=== PATIENT | male | born 1960 | race Two or more races ===

== ENCOUNTER 2023-06-10 09:03 | Inpatient (IN) | payer OTHER ==
[~2023-06-10] VITALS: Ht 180.3 cm; Wt 58.6 kg
[~2023-06-10 09:03] MED LIST: IBUP-1456 PO; PRED20TA2 PO; TRAM50TA2 PO
[2023-06-10 09:25] VITALS: PULSE 73; RESP 15; O2SAT 97
[2023-06-10] MEDS: DEXTROSE (50%) 50ML SYRG IV ONE ×2 (09:44→09:45)
[2023-06-10] MEDS: DEXTROSE 10% 1,000 ML IV ONE (09:50)
[2023-06-10 10:07] LABS: Basophils # (auto) 0 10 ^3/uL (0-0.2); Basophils % (auto) 0.4 % (0.0-2.0); Eosinophils # (auto) 0 10 ^3/uL (0-0.8); Hemoglobin 12.4 g/dL (13.5-17.5); Lymphocytes # (auto) 0.7 10 ^3/uL (0.4-5.4); Monocytes # (auto) 0.3 10 ^3/uL (0-1.3)
[2023-06-10 10:10] LABS: Eosinophils % (auto) 0.2 % (0.0-7.0); Hematocrit 37.8 % (41.0-53.0); Lymphocytes % (auto) 11.1 % (10.0-50.0); Mean Corpuscular Hemoglobin 29.7 pg (28.0-32.0); Mean Corpuscular Hgb Conc. 32.8 g/dL (32.0-36.0); Mean Corpuscular Volume 90.5 fL (80.0-100.0); Monocytes % (auto) 5.7 % (0.0-12.0); Neutrophils % (auto) 82.6 % (37.0-80.0); Red Blood Cells 4.17 10^6/uL (4.5-5.90); Red Cell Distribution Width 13.9 % (11.8-14.3); White Blood Cell 6.1 10^3/uL (4.4-10.8)
[2023-06-10 10:11] LABS: Alanine Aminotransferase 12 U/L (7-40); Albumin 4.5 g/dL (3.2-4.8); Alkaline Phosphatase 103 U/L (46-116); Anion Gap 8 (5-15); Aspartate Aminotransferase 21 U/L (13-40); BUN/Creatinine Ratio 17.3 (10.0-20.0); Bilirubin, Total 0.3 mg/dL (0.2-1.0); Blood Urea Nitrogen 13 mg/dL (9-23); Calcium 10.2 mg/dL (8.5-10.1); Carbon Dioxide 28 mmol/L (20-30); Chloride 102 mmol/L (98-107); Potassium 4.1 mmol/L (3.5-5.1); Sodium 138 mmol/L (136-145); Total Protein 7.2 g/dL (5.7-8.2)
[2023-06-10 10:23] LABS: Glucose 31 mg/dL (74-106)
[2023-06-10 10:48] LABS: Lipase 31 U/L (12-53); Magnesium 1.5 mg/dL (1.6-2.6)
[2023-06-10 11:03] LABS: Urine Bacteria NONE SEEN /hpf (None Seen); Urine Blood 2+ /uL (Negative); Urine Clarity CLOUDY (Clear); Urine Color Colorless (Yellow); Urine Protein, UAD 2+ (Negative); Urine Urobilinogen Normal (Negative); Urine WBC 4754 /hpf (0 - 3); Urine WBC Clumps PRESENT /hpf (None Seen)
[2023-06-10] MEDS ORDERED: ONDANSETRON HCL 4 MG/2 ML VIAL IV PRN (16:30)
[2023-06-10] MEDS ORDERED: ACETAMINOPHEN 325 MG TAB PO PRN (16:30)
[2023-06-10] MEDS ORDERED: NITROGLYCERIN 0.4 MG SL TAB SL PRN (16:30)
[2023-06-10] MEDS ORDERED: MORPHINE SULFATE INJ 2 MG/ml SYRG IV PRN (16:30)
[2023-06-10] MEDS: HYDROcodone-ACET 5/325MG TAB PO PRN (17:01)
[2023-06-10] MEDS: MAGNESIUM SULFATE 1GM/100ML 100 ML IV SCH (17:01)
[2023-06-10] MEDS: DEXTROSE 10% 1,000 ML IV SCH (17:10)
[2023-06-10] MEDS: ACCU-CHEK COMFORT CURVE STRIP VI SCH ×2 (17:53→23:37)
[2023-06-10] MEDS: cefTRIAXone 1GM/50ML D5W 50 ML IV ONE (20:19)
[2023-06-10] MEDS: MAGNESIUM OXIDE 400 MG TAB PO SCH (21:22)
[2023-06-10] MEDS ORDERED: DEXTROSE (50%) 50ML SYRG IV PRN (21:30)
[2023-06-10] MEDS: D5W/SOD CHL 0.45% 1,000 ML IV SCH (21:35)
[2023-06-10] MEDS: MORPHINE SULFATE INJ 2 MG/ml SYRG IV PRN (22:33)
[2023-06-10] MEDS: InsuLIN REG 1unit/0.01ml Soln (100units/ml) SC SCH (23:43)
[2023-06-11] MEDS: ACCU-CHEK COMFORT CURVE STRIP VI SCH
[2023-06-11 05:54] LABS: Alkaline Phosphatase 85 U/L (46-116); Anion Gap 6 (5-15); Aspartate Aminotransferase 13 U/L (13-40); BUN/Creatinine Ratio 13.5 (10.0-20.0); Blood Urea Nitrogen 10 mg/dL (9-23); Calcium 9.3 mg/dL (8.7-10.4); Carbon Dioxide 26 mmol/L (20-30); Chloride 100 mmol/L (98-107); Glucose 114 mg/dL (74-106); Potassium 4.3 mmol/L (3.5-5.1)
[2023-06-11 05:55] LABS: Bilirubin, Total 0.3 mg/dL (0.2-1.0); Total Protein 6.7 g/dL (5.7-8.2)
[2023-06-11 05:58] LABS: Alanine Aminotransferase < 9 U/L (7-40); Sodium 132 mmol/L (136-145)
[2023-06-11 06:19] LABS: Basophils # (auto) 0 10 ^3/uL (0-0.2); Eosinophils # (auto) 0 10 ^3/uL (0-0.8); Eosinophils % (auto) 0.5 % (0.0-7.0); Hematocrit 35.5 % (41.0-53.0); Hemoglobin 12.1 g/dL (13.5-17.5); Lymphocytes # (auto) 0.8 10 ^3/uL (0.4-5.4); Neutrophils # (auto) 5.8 10 ^3/uL (1.6-8.6); Nucleated Red Blood Cells % 0.1 %
[2023-06-11] MEDS: CYCLOBENZAPRINE HCL 10 MG TAB PO ONE (06:22)
[2023-06-11 06:23] LABS: Basophils % (auto) 0.5 % (0.0-2.0); Lymphocytes % (auto) 10.9 % (10.0-50.0); Mean Corpuscular Hemoglobin 30.3 pg (28.0-32.0); Mean Corpuscular Hgb Conc. 34.1 g/dL (32.0-36.0); Mean Corpuscular Volume 88.9 fL (80.0-100.0); Monocytes # (auto) 0.5 10 ^3/uL (0-1.3); Monocytes % (auto) 7.6 % (0.0-12.0); Neutrophils % (auto) 80.5 % (37.0-80.0); Red Blood Cells 3.99 10^6/uL (4.5-5.90); Red Cell Distribution Width 13.9 % (11.8-14.3); White Blood Cell 7.2 10^3/uL (4.4-10.8)
[2023-06-11 06:52] LABS: Amphetamine Screen, Urine Neg (NEGATIVE); Barbiturate Scree,Urine Neg (NEGATIVE); Benzodiazephine Screen, Urine Pos (NEGATIVE); Cannabinoid Screen, Urine Neg (NEGATIVE); Cocaine Screen, Urine Neg (NEGATIVE); Opiate Scree,Urine Pos (NEGATIVE); Phencyclidine Screen, Urine Neg (NEGATIVE)
[2023-06-11 07:58] VITALS: PULSE 128; RESP 31; O2SAT 98
[2023-06-11] MEDS: ENOXAPARIN SOD 40 MG/0.4 ML SYRINGE SC SCH (09:47)
[2023-06-11] MEDS: DEXTROSE (50%) 50ML SYRG IV ONE (14:16)
[2023-06-11] MEDS: ACCU-CHEK COMFORT CURVE STRIP VI ONE (17:00)
[2023-06-11] MEDS: InsuLIN REG 1unit/0.01ml Soln (100units/ml) SC ONE (17:00)
[2023-06-11 19:35] VITALS: PULSE 111; RESP 21; O2SAT 95
[2023-06-11] MEDS: cefTRIAXone 1GM/50ML D5W 50 ML IV SCH (20:54)
[2023-06-11 23:18] VITALS: BP 146/86; PULSE 119; RESP 21; TEMP 98.2; O2SAT 99
[2023-06-12] VITALS (9 sets, daily range): BP systolic 104–146; BP diastolic 65–86; PULSE 80–119; RESP 16–21; TEMP 97.9–98.3; O2SAT 96–99
[2023-06-12] MEDS ORDERED: METF-370 PO (00:01)
[2023-06-12] MEDS ORDERED: INSU75IN2 SC (00:01)
[2023-06-12] MEDS ORDERED: GABA-339 PO (00:01)
[2023-06-13 05:00] VITALS: BP 121/71; PULSE 85; RESP 18; TEMP 98.7; O2SAT 98
[2023-06-13 08:00] VITALS: PULSE 80; PULSE 83; RESP 18; O2SAT 96
[2023-06-13 09:00] VITALS: BP 123/72; PULSE 84; RESP 19; TEMP 98; O2SAT 98
[2023-06-13 12:46] VITALS: BP 149/83; PULSE 107; RESP 18; TEMP 97.8; O2SAT 95
[2023-06-13 12:50] VITALS: TEMP 36.6
== END 2023-06-13 18:30 | disposition home or self-care (01) | DRG 637 ==
LOC: EDBD 09:03 → ER 09:03 → TELE 16:26 → TELE-EAST 06-11 16:26
PROVIDERS: ADMIT Internal Medicine; ATTEND Internal Medicine
DX: E11.649 Type 2 diabetes mellitus with hypoglycemia without coma (principal); G93.41 Metabolic encephalopathy; E83.42 Hypomagnesemia; E86.0 Dehydration; G89.4 Chronic pain syndrome; F32.A Depression, unspecified; F41.9 Anxiety disorder, unspecified; T50.995A Adverse effect of other drugs, medicaments and biological substances, initial encounter; M16.0 Bilateral primary osteoarthritis of hip; Z79.4 Long term (current) use of insulin
CPT/HCPCS: 36415; 71045; 80053; 80307; 81001; 82962; 83036; 83690; 83735; 84484; 85025; 87040; 87086; 97110; 97163; 99291; G0378; J1815

== ENCOUNTER 2023-06-26 23:44 | Emergency (ER) | payer OTHER ==
[~2023-06-26] VITALS: Ht 182.9 cm; Wt 63.6 kg
[~2023-06-26 23:44] MED LIST changes: +GABA-339 PO; +METF-370 PO; -PRED20TA2 PO; -TRAM50TA2 PO
[2023-06-27] VITALS: PULSE 104; RESP 15; O2SAT 99
[2023-06-27] MEDS: KETOROLAC TROMETH 30 MG/ML 1ML VIAL IV ONE (00:43)
[2023-06-27] MEDS: MORPHINE SULFATE 4 MG/ML SYR/VIAL IV ONE ×2 (02:08→06:16)
[2023-06-27 07:25] VITALS: BP 102/50; PULSE 69; RESP 18; TEMP 98.2; O2SAT 97
== END 2023-06-27 10:10 | disposition home or self-care (01) ==
LOC: ER 23:44 → EDBD 23:44 → ER 06-27 10:06
DX: G89.4 Chronic pain syndrome (principal); M25.562 Pain in left knee; M25.561 Pain in right knee; M25.552 Pain in left hip; M25.551 Pain in right hip; E11.9 Type 2 diabetes mellitus without complications; F41.9 Anxiety disorder, unspecified; F32.9 Major depressive disorder, single episode, unspecified; M19.90 Unspecified osteoarthritis, unspecified site; Z79.899 Other long term (current) drug therapy
CPT/HCPCS: 96374; 96375; 96376; 99285; J1885; J2270

== ENCOUNTER 2023-09-21 14:06 | Inpatient (IN) | payer OTHER ==
[~2023-09-21] VITALS: Ht 180.3 cm; Wt 66.4 kg
[2023-09-21 15:40] VITALS: PULSE 93; RESP 13; O2SAT 96
[2023-09-21] MEDS: SODIUM CHLORIDE 0.9% 1,000 ML IVB ONE (15:40)
[2023-09-21 15:56] LABS: Basophils # (auto) 0 10 ^3/uL (0-0.2); Basophils % (auto) 0.2 % (0.0-2.0); Eosinophils # (auto) 0 10 ^3/uL (0-0.8); Monocytes # (auto) 0.8 10 ^3/uL (0-1.3); Neutrophils % (auto) 85.2 % (37.0-80.0)
[2023-09-21 15:59] LABS: Eosinophils % (auto) 0.1 % (0.0-7.0); Hematocrit 40.8 % (41.0-53.0); Hemoglobin 13.4 g/dL (13.5-17.5); Lymphocytes % (auto) 8.1 % (10.0-50.0); Mean Corpuscular Hemoglobin 28.6 pg (28.0-32.0); Mean Corpuscular Volume 86.8 fL (80.0-100.0); Monocytes % (auto) 6.4 % (0.0-12.0); Neutrophils # (auto) 10.7 10 ^3/uL (1.6-8.6); Nucleated Red Blood Cells % 0.1 %; Red Blood Cells 4.69 10^6/uL (4.5-5.90); Red Cell Distribution Width 13.8 % (11.8-14.3); White Blood Cell 12.6 10^3/uL (4.4-10.8)
[2023-09-21 16:13] LABS: Anion Gap 8 (5-15); Carbon Dioxide 24 mmol/L (20-30); Chloride 93 mmol/L (98-107); Sodium 125 mmol/L (136-145)
[2023-09-21 16:14] LABS: Calcium 10.9 mg/dL (8.5-10.1)
[2023-09-21 16:19] LABS: BUN/Creatinine Ratio 28.8 (10.0-20.0); Blood Urea Nitrogen 47 mg/dL (9-23); Glucose 246 mg/dL (74-106)
[2023-09-21 16:29] LABS: Potassium 5.9 mmol/L (3.5-5.1)
[2023-09-21 16:36] LABS: RBC Morphology Normal
[2023-09-21 16:37] LABS: Platelet Estimate Increased
[2023-09-21] MEDS: SODIUM BICARB 8.4% 50Meq/50ml SYR Vial IV ONE (16:41)
[2023-09-21] MEDS: CALCIUM GLUC 1,000mg/50ml-NS 50 ML IV ONE (16:41)
[2023-09-21 17:03] LABS: Urine Bacteria None Seen /hpf (None Seen)
[2023-09-21 17:15] LABS: Urine Blood 3+ /uL (Negative); Urine Clarity Ex.Turbid (Clear); Urine Color Dark-Brown (Yellow); Urine Protein, UAD 2+ (Negative); Urine Specific Gravity 1.013 (1.001-1.035); Urine Urobilinogen Normal (Negative); Urine WBC 2171 /hpf (0 - 3); Urine WBC Clumps PRESENT /hpf (None Seen); Urine pH 6.5 (5.0-9.0)
[2023-09-21] MEDS ORDERED: MORPHINE SULFATE 4 MG/ML SYR/VIAL IV PRN ×2 (17:30→17:45)
[2023-09-21] MEDS ORDERED: ONDANSETRON HCL 4 MG/2 ML VIAL IV PRN (17:30)
[2023-09-21] MEDS ORDERED: cefTRIAXone 1GM/50ML D5W 50 ML IV ONE (17:30)
[2023-09-21] MEDS ORDERED: DEXTROSE (50%) 50ML SYRG IV PRN (17:30)
[2023-09-21] MEDS ORDERED: NITROGLYCERIN 0.4 MG SL TAB SL PRN (17:30)
[2023-09-21 18:11] LABS: LDL Cholesterol 93 mg/dL (< 100); Triglycerides 187 mg/dL (< 150)
[2023-09-21 18:12] LABS: HDL Cholesterol 26 mg/dL (40-59)
[2023-09-21 18:13] LABS: Cholesterol 145 mg/dL (< 200); Creatine Kinase IFCC < 15 U/L (46-171)
[2023-09-21] MEDS: cefTRIAXone 1GM/50ML D5W 50 ML IV ONE ×2 (18:15→18:22)
[2023-09-21] MEDS: SODIUM CHLORIDE 0.9% 1,000 ML IV SCH (18:22)
[2023-09-21 18:43] LABS: Folate (Folic Acid) 20.27 ng/mL (>5.38)
[2023-09-21 18:44] LABS: Free T4 (Free Thyroxine) 1.17 ng/dL (0.89-1.76)
[2023-09-21 20:13] LABS: Chloride 95 mmol/L (98-107); Potassium 4.8 mmol/L (3.5-5.1); Sodium 126 mmol/L (136-145)
[2023-09-21 20:14] LABS: Anion Gap 6 (5-15); Carbon Dioxide 25 mmol/L (20-30)
[2023-09-21 20:15] LABS: Calcium 9.9 mg/dL (8.7-10.4)
[2023-09-21 20:19] LABS: BUN/Creatinine Ratio 28.5 (10.0-20.0); Glucose 228 mg/dL (74-106)
[2023-09-21 20:20] VITALS: PULSE 88; RESP 18; O2SAT 98
[2023-09-21] MEDS: HYDROcodone-ACET 5/325MG TAB PO PRN (20:49)
[2023-09-21 20:51] LABS: Blood Urea Nitrogen 35 mg/dL (9-23)
[2023-09-21] MEDS: HYDROcodone-ACET 5/325MG TAB ONE (20:54)
[2023-09-21] MEDS: ACCU-CHEK COMFORT CURVE STRIP VI SCH (22:45)
[2023-09-21] MEDS: InsuLIN REG 1unit/0.01ml Soln (100units/ml) SC SCH (22:49)
[2023-09-21] MEDS: InsuLIN REG 1unit/0.01ml Soln (100units/ml) ONE (22:51)
[2023-09-22] MEDS ORDERED: ONDANSETRON HCL 4 MG/2 ML VIAL IV PRN (00:15)
[2023-09-22] MEDS ORDERED: MORPHINE SULFATE 4 MG/ML SYR/VIAL IV PRN (00:15)
[2023-09-22] MEDS ORDERED: NITROGLYCERIN 0.4 MG SL TAB SL PRN (00:15)
[2023-09-22] MEDS: SODIUM CHLORIDE 0.9% 1,000 ML IV SCH ×2 (00:15→17:15)
[2023-09-22] MEDS ORDERED: DEXTROSE (50%) 50ML SYRG IV PRN (00:15)
[2023-09-22] MEDS: MORPHINE SULFATE 4 MG/ML SYR/VIAL IV PRN (00:23)
[2023-09-22 00:38] VITALS: BP 97/69; PULSE 81; RESP 22; TEMP 97.6; O2SAT 99
[2023-09-22 01:46] VITALS: BP 97/69; PULSE 81; RESP 22; TEMP 97.6; O2SAT 99
[2023-09-22] MEDS ORDERED: TIZA2CAP7 PO (01:54)
[2023-09-22] MEDS ORDERED: HYDR-4798 PO (01:54)
[2023-09-22] MEDS: HYDROcodone-ACET 5/325MG TAB PO PRN (04:14)
[2023-09-22 05:00] VITALS: BP 114/69; PULSE 83; RESP 20; TEMP 98.3; O2SAT 97
[2023-09-22] MEDS: ACCU-CHEK COMFORT CURVE STRIP VI SCH (05:56)
[2023-09-22 06:04] LABS: Basophils # (auto) 0 10 ^3/uL (0-0.2); Basophils % (auto) 0.2 % (0.0-2.0); Eosinophils # (auto) 0 10 ^3/uL (0-0.8); Hemoglobin 9.9 g/dL (13.5-17.5); Monocytes # (auto) 0.8 10 ^3/uL (0-1.3); Neutrophils # (auto) 7.3 10 ^3/uL (1.6-8.6)
[2023-09-22] MEDS: InsuLIN REG 1unit/0.01ml Soln (100units/ml) SC SCH (06:09)
[2023-09-22 06:13] LABS: Eosinophils % (auto) 0.4 % (0.0-7.0); Hematocrit 29.2 % (41.0-53.0); Lymphocytes # (auto) 0.8 10 ^3/uL (0.4-5.4); Lymphocytes % (auto) 8.7 % (10.0-50.0); Mean Corpuscular Hemoglobin 29.3 pg (28.0-32.0); Mean Corpuscular Hgb Conc. 33.8 g/dL (32.0-36.0); Mean Corpuscular Volume 86.9 fL (80.0-100.0); Monocytes % (auto) 8.9 % (0.0-12.0); Neutrophils % (auto) 81.8 % (37.0-80.0); Red Blood Cells 3.37 10^6/uL (4.5-5.90); Red Cell Distribution Width 13.7 % (11.8-14.3)
[2023-09-22 06:33] LABS: Albumin 3.3 g/dL (3.2-4.8); Alkaline Phosphatase 94 U/L (46-116); Anion Gap 7 (5-15); Aspartate Aminotransferase 8 U/L (13-40); BUN/Creatinine Ratio 29.7 (10.0-20.0); Bilirubin, Total 0.2 mg/dL (0.2-1.0); Blood Urea Nitrogen 27 mg/dL (9-23); Carbon Dioxide 23 mmol/L (20-30); Chloride 102 mmol/L (98-107); Glucose 198 mg/dL (74-106); Potassium 4.7 mmol/L (3.5-5.1); Total Protein 6.3 g/dL (5.7-8.2)
[2023-09-22 06:34] LABS: Alanine Aminotransferase < 9 U/L (7-40); Sodium 132 mmol/L (136-145)
[2023-09-22 08:00] VITALS: BP 104/63; PULSE 81; RESP 17; TEMP 98.3; O2SAT 98
[2023-09-22 16:50] VITALS: BP 102/61; PULSE 71; RESP 18; TEMP 97.5; O2SAT 97
[2023-09-22] MEDS: cefTRIAXone 1GM/50ML D5W 50 ML IV SCH (17:45)
[2023-09-22] MEDS ORDERED: cefTRIAXone 1GM/50ML D5W 50 ML IV SCH (18:00)
[2023-09-22] MEDS: LIDOCAINE 2% JELLY 11ml (GLYDO) UR ONE (19:00)
[2023-09-22 21:00] VITALS: BP 126/67; PULSE 82; RESP 17; TEMP 97.9; O2SAT 100
[2023-09-23] VITALS (8 sets, daily range): BP systolic 101–115; BP diastolic 61–72; PULSE 65–87; RESP 14–18; TEMP 97.6–98.7; O2SAT 95–100
[2023-09-23 06:36] LABS: Basophils # (auto) 0 10 ^3/uL (0-0.2); Basophils % (auto) 0.2 % (0.0-2.0); Eosinophils # (auto) 0 10 ^3/uL (0-0.8); Lymphocytes # (auto) 0.8 10 ^3/uL (0.4-5.4); Monocytes # (auto) 0.7 10 ^3/uL (0-1.3); Red Blood Cells 3.62 10^6/uL (4.5-5.90)
[2023-09-23 06:41] LABS: Chloride 99 mmol/L (98-107); Potassium 4.2 mmol/L (3.5-5.1); Sodium 128 mmol/L (136-145)
[2023-09-23 06:42] LABS: Anion Gap 6 (5-15); Carbon Dioxide 23 mmol/L (20-30)
[2023-09-23 06:43] LABS: Eosinophils % (auto) 0.2 % (0.0-7.0); Hematocrit 31.2 % (41.0-53.0); Hemoglobin 10.7 g/dL (13.5-17.5); Lymphocytes % (auto) 8.8 % (10.0-50.0); Mean Corpuscular Hemoglobin 29.6 pg (28.0-32.0); Mean Corpuscular Hgb Conc. 34.4 g/dL (32.0-36.0); Monocytes % (auto) 7.6 % (0.0-12.0); Neutrophils # (auto) 7.2 10 ^3/uL (1.6-8.6); Neutrophils % (auto) 83.2 % (37.0-80.0); Nucleated Red Blood Cells % 0.1 %; Red Cell Distribution Width 13.4 % (11.8-14.3); White Blood Cell 8.7 10^3/uL (4.4-10.8)
[2023-09-23 06:47] LABS: BUN/Creatinine Ratio 17.3 (10.0-20.0); Blood Urea Nitrogen 14 mg/dL (9-23); Glucose 259 mg/dL (74-106)
[2023-09-23 08:06] LABS: PSA Free 0.48 ng/mL; Prostate Specific Antigen 3.5 ng/mL (0.0-4.0)
[2023-09-23 12:46] LABS: Urine Bacteria MANY /hpf (None Seen); Urine Blood 3+ /uL (Negative); Urine Clarity Ex.Turbid (Clear); Urine Color Colorless (Yellow); Urine Mucus FEW (None Seen); Urine Protein, UAD 1+ (Negative); Urine Specific Gravity 1.015 (1.001-1.035); Urine Urobilinogen Normal (Negative); Urine WBC 1280 /hpf (0 - 3); Urine WBC Clumps PRESENT /hpf (None Seen)
[2023-09-23] MEDS ORDERED: TIZANIDINE HYDROCHLORIDE 2 MG PO PRN (13:15)
[2023-09-23] MEDS: GABAPENTIN 300 MG CAP PO SCH (14:00)
[2023-09-23] MEDS: INSULIN NPH Isophane (HUMAN) 1unit/0.01ml Susp(100units/ml) SC ONE (18:00)
[2023-09-24] VITALS (8 sets, daily range): BP systolic 103–111; BP diastolic 64–74; PULSE 68–90; RESP 16–20; TEMP 97.3–98.3; O2SAT 95–100
[2023-09-24] MEDS: INSULIN NPH Isophane (HUMAN) 1unit/0.01ml Susp(100units/ml) SC SCH (12:18)
[2023-09-24 13:06] LABS: RPR Non Reactive (Non Reactive)
[2023-09-24] MEDS: MEROPENEM 1GM IVPB 50 ML IV SCH (14:00)
[2023-09-25 04:56] VITALS: BP 113/73; PULSE 67; RESP 16; TEMP 98.1; O2SAT 97
[2023-09-25 09:00] VITALS: BP 103/67; PULSE 65; RESP 18; TEMP 97.9; O2SAT 97
[2023-09-25] MEDS ORDERED: BACDST PO (12:23)
[2023-09-25] MEDS ORDERED: FINA5TAB4 PO (12:28)
[2023-09-25 13:00] VITALS: BP 117/84; PULSE 78; RESP 20; TEMP 97.5; O2SAT 91
== END 2023-09-25 16:39 | disposition home or self-care (01) | DRG 640 ==
LOC: ER 14:06 → EDBD 14:06 → ER 17:28 → OVERFLOW 17:28 → WEST WING 23:25
PROVIDERS: ADMIT Hospitalist; ATTEND Hospitalist
DX: R62.7 Adult failure to thrive (principal); G93.41 Metabolic encephalopathy; N39.0 Urinary tract infection, site not specified; E87.1 Hypo-osmolality and hyponatremia; E86.0 Dehydration; E87.5 Hyperkalemia; E11.65 Type 2 diabetes mellitus with hyperglycemia; M16.0 Bilateral primary osteoarthritis of hip; N40.0 Benign prostatic hyperplasia without lower urinary tract symptoms; M17.10 Unilateral primary osteoarthritis, unspecified knee; G89.4 Chronic pain syndrome; M62.58 Muscle wasting and atrophy, not elsewhere classified, other site; Z79.84 Long term (current) use of oral hypoglycemic drugs; Z79.899 Other long term (current) drug therapy; Z74.01 Bed confinement status; Z68.20 Body mass index [BMI] 20.0-20.9, adult
CPT/HCPCS: 36415; 71045; 76700; 76856; 80048; 80053; 80061; 81001; 82306; 82550; 82607; 82746; 82962; 83036; 83605; 84154; 84439; 84443; 85025; 86592; 87040; 87086; 87088; 87186; 93306; 97163; 99291; G0378; J1815; J2185

== ENCOUNTER 2024-03-06 18:01 | Inpatient (IN) | payer OTHER ==
[~2024-03-06] VITALS: Ht 177.8 cm; Wt 50.7 kg
[~2024-03-06 18:01] MED LIST changes: +BACDST PO; +FINA5TAB4 PO; +HYDR-4798 PO; -IBUP-1456 PO; +TIZA2CAP7 PO
[2024-03-06] MEDS ORDERED: DEXTROSE (25%) 10 ML SYRG IV PRN (20:45)
[2024-03-06 21:00] VITALS: BP 129/81; PULSE 88; RESP 16; TEMP 97.6; O2SAT 99
[2024-03-06] MEDS ORDERED: cefTRIAXone 1GM/50ML D5W 50 ML IV ONE (21:00)
[2024-03-06] MEDS: D5W/SOD CHL 0.45% 1,000 ML IV SCH (21:13)
[2024-03-06] MEDS: cefTRIAXone 1GM/50ML D5W 50 ML IV SCH (21:21)
[2024-03-06 22:26] LABS: Basophils # (auto) 0 10 ^3/uL (0-0.2); Eosinophils # (auto) 0 10 ^3/uL (0-0.8); Hemoglobin 11.2 g/dL (13.5-17.5); Lymphocytes # (auto) 0.9 10 ^3/uL (0.4-5.4); Monocytes # (auto) 0.4 10 ^3/uL (0-1.3)
[2024-03-06 22:27] LABS: Basophils % (auto) 0.3 % (0.0-2.0); Eosinophils % (auto) 0.1 % (0.0-7.0); Hematocrit 34.5 % (41.0-53.0); Lymphocytes % (auto) 6.4 % (10.0-50.0); Mean Corpuscular Hemoglobin 28.4 pg (28.0-32.0); Mean Corpuscular Hgb Conc. 32.5 g/dL (32.0-36.0); Mean Corpuscular Volume 87.6 fL (80.0-100.0); Monocytes % (auto) 2.8 % (0.0-12.0); Neutrophils # (auto) 13.1 10 ^3/uL (1.6-8.6); Neutrophils % (auto) 90.4 % (37.0-80.0); Red Blood Cells 3.94 10^6/uL (4.5-5.90); Red Cell Distribution Width 18.5 % (11.8-14.3); White Blood Cell 14.5 10^3/uL (4.4-10.8)
[2024-03-06 22:31] LABS: Platelet Count (auto) 978 10^3/uL (140-450)
--- NOTE | 2024-03-06 22:38 | DVH ---
EXAM: CT HEAD WITHOUT CONTRAST HISTORY: altered mental status COMPARISON: None TECHNIQUE: Axial images were obtained and reformatted in coronal and sagittal planes. All CT scans at this medical facility are performed using dose modulation techniques as appropriate t o a performed exam including the following: Automated exposure control was utilized; adjustment of th e MA and/or KV according to patient size; and use of iterative reconstruction technique. CT Dose: CTDI volume is 65 mGy. Dose-length product is 1158 mGy*cm FINDINGS: Supratentorial Region: No evidence for large acute territorial ischemia. No intracranial hemorrhage is noted. Confluent white matter hypoattenuating foci are noted bilaterally, which typically reflect chronic microvascular ischemic changes. Posterior Fossa: No acute abnormality. Brainstem: Unremarkable. Sellar/Suprasellar Region: Unremarkable. Ventricles, Cisterns, Sulci: Age-appropriate. Orbits: Unremarkable. Paranasal Sinuses: Unremarkable. Mastoid Air Cells: Unremarkable. Vasculature: Unremarkable. Bones/Soft Tissues: No acute abnormality. Other: None. IMPRESSION: No acute intracranial process.
[2024-03-06] MEDS ORDERED: FERR28TA4 PO (22:39)
[2024-03-06] MEDS ORDERED: DULO20CA PO (22:39)
[2024-03-06] MEDS ORDERED: HYDR-3682 PO (22:39)
[2024-03-06 22:45] LABS: Large Platelets FEW; Platelet Estimate Markedly Increased
[2024-03-06 22:48] LABS: Chloride 94 mmol/L (98-107); Potassium 5.5 mmol/L (3.5-5.1); Sodium 125 mmol/L (136-145)
[2024-03-06 22:49] LABS: Anion Gap 11 (5-15); Carbon Dioxide 20 mmol/L (20-31)
[2024-03-06 22:50] LABS: Calcium 9.8 mg/dL (8.7-10.4)
[2024-03-06 22:54] LABS: Glucose 97 mg/dL (74-106)
[2024-03-06 22:55] LABS: Blood Urea Nitrogen 29 mg/dL (9-23)
[2024-03-06] MEDS ORDERED: INSU1INJ19 SC (23:07)
[2024-03-06 23:55] VITALS: PULSE 102; RESP 20; O2SAT 100
[2024-03-07] VITALS (27 sets, daily range): BP systolic 86–130; BP diastolic 46–85; PULSE 81–134; RESP 10–33; TEMP 97.1–97.8; O2SAT 98–100
[2024-03-07] MEDS: DEXTROSE (50%) 50ML SYRG IV ONE (00:20)
[2024-03-07] MEDS: InsuLIN REG 1unit/0.01ml Soln (100units/ml) IV ONE (00:30)
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
[2024-03-07] MEDS ORDERED: PATIENTS OWN MEDICATION (Hydroxyzine Hcl 25 MG) PO PRN (00:45)
[2024-03-07] MEDS: HEPARIN SODIUM (PORCINE) 5000 UNITS/ML 1ML VIAL SC SCH (00:46)
[2024-03-07] MEDS: CALCIUM GLUC 1,000mg/50ml-NS 50 ML IV ONE (00:46)
[2024-03-07] MEDS: SODIUM BICARB 8.4% 50Meq/50ml SYR INJ IV ONE (00:46)
[2024-03-07] MEDS: DEXTROSE 10% 1,000 ML IV SCH (00:49)
[2024-03-07] MEDS: ALBUTEROL SULF 2.5 MG/0.5ML(0.5%) NEB SOLN NEB ONE (00:50)
[2024-03-07] MEDS ORDERED: hydrOXYzine 25 MG TAB or CAP PO PRN (01:15)
[2024-03-07 02:25] LABS: Anion Gap 8 (5-15); Carbon Dioxide 19 mmol/L (20-31); Chloride 100 mmol/L (98-107); Potassium 5.1 mmol/L (3.5-5.1); Sodium 127 mmol/L (136-145)
[2024-03-07 02:26] LABS: Calcium 9.9 mg/dL (8.7-10.4)
[2024-03-07 02:31] LABS: BUN/Creatinine Ratio 14.5 (10.0-20.0); Blood Urea Nitrogen 25 mg/dL (9-23); Glucose 121 mg/dL (74-106)
[2024-03-07] MEDS ORDERED: VANCOMYCIN PER PHARMACY 0 MG IV SCH (03:30)
[2024-03-07] MEDS: SODIUM CHLORIDE 0.9% 500 ML IV ONE (03:30)
[2024-03-07] MEDS: VANCOMYCIN 1GM/200ML PREMIX 200 ML IV ONE (03:45)
[2024-03-07 04:04] LABS: Urine Bacteria MANY /hpf (None Seen); Urine Blood 3+ /uL (Negative); Urine Clarity Ex.Turbid (Clear); Urine Color Light-Brown (Yellow); Urine Mucus FEW (None Seen); Urine Protein, UAD 1+ (Negative); Urine Urobilinogen Normal (Negative); Urine WBC 4344 /hpf (0 - 3); Urine WBC Clumps PRESENT /hpf (None Seen)
[2024-03-07 05:16] LABS: Chloride 98 mmol/L (98-107); Potassium 4.3 mmol/L (3.5-5.1); Sodium 127 mmol/L (136-145)
[2024-03-07 05:17] LABS: Anion Gap 8 (5-15); Calcium 9.6 mg/dL (8.7-10.4); Carbon Dioxide 21 mmol/L (20-31)
[2024-03-07 05:22] LABS: BUN/Creatinine Ratio 16.1 (10.0-20.0); Blood Urea Nitrogen 26 mg/dL (9-23); Glucose 197 mg/dL (74-106)
[2024-03-07 05:32] LABS: Lactic Acid w/Reflex 4.3 mmol/L (0.4-2.0)
[2024-03-07 05:35] LABS: Basophils # (auto) 0 10 ^3/uL (0-0.2); Eosinophils # (auto) 0 10 ^3/uL (0-0.8); Eosinophils % (auto) 0.1 % (0.0-7.0); Hemoglobin 9.9 g/dL (13.5-17.5); Monocytes # (auto) 0.6 10 ^3/uL (0-1.3); Neutrophils # (auto) 12.1 10 ^3/uL (1.6-8.6)
[2024-03-07 05:45] LABS: Basophils % (auto) 0.1 % (0.0-2.0); Hematocrit 29.4 % (41.0-53.0); Lymphocytes # (auto) 1.2 10 ^3/uL (0.4-5.4); Lymphocytes % (auto) 8.4 % (10.0-50.0); Mean Corpuscular Hemoglobin 29.3 pg (28.0-32.0); Mean Corpuscular Hgb Conc. 33.6 g/dL (32.0-36.0); Mean Corpuscular Volume 87.1 fL (80.0-100.0); Monocytes % (auto) 4.4 % (0.0-12.0); Red Blood Cells 3.38 10^6/uL (4.5-5.90); Red Cell Distribution Width 18.4 % (11.8-14.3); White Blood Cell 13.9 10^3/uL (4.4-10.8)
[2024-03-07 05:59] LABS: Platelet Count (auto) 960 10^3/uL (140-450)
[2024-03-07] MEDS: ACCU-CHEK COMFORT CURVE STRIP VI SCH (06:00)
[2024-03-07] MEDS: SODIUM CHLORIDE 0.9% 1,000 ML IV SCH (06:00)
[2024-03-07] MEDS: HYDROcodone-ACET 5/325MG TAB ONE (06:06)
--- NOTE | 2024-03-07 09:41 | DVHINCON2 ---
Date of service: Mar 07, 2024 Referring Physician Esther Hernandez NP Reason for Consultation Acute kidney injury History of Present Illness Patient is 63 y/o male with PMH of DM, anxiety and osteoarthritis who was transferred from [facility] per O insurance for hypoglycemia. On Admission patient found to have elevated BUN and creatinine, nephrology is consulted for ALBERT Allergies: Coded Allergies: No Known Drug Allergy (Verified Allergy, Unknown, 11/24/22) Home Meds Active Scripts Finasteride (Finasteride) 5 Mg Tab, 1 TAB PO DAILY, #90 TAB 1 Refill Prov:JOHN DRISCOLL MD 09/25/23 Sulfamethoxazole W/Trimethopri (Bactrim Ds Tablet) 1 Tab Tb, 1 TAB PO BID, #10 TAB Prov:JOHN DRISCOLL MD 09/25/23 Reported Medications Insulin Glargine (Basaglar Kwikpen) 100 Unit/Ml Inj, 20 UNIT SC DAILY, INJ 03/06/24 Ferrous Sulfate (Iron) 28 Mg Tab, 65 MG PO, TAB 03/06/24 Hydroxyzine Hcl (Hydroxyzine Hcl) 25 Mg Tab, 25 MG PO QIDP PRN for ANXIETY for 30 Days, MG 03/06/24 Duloxetine Hcl (Cymbalta) 20 Mg Cap, 1 CAP PO DAILY, #30 CAP 03/06/24 Hydrocodone-Acetaminophen (Hydrocodone Bitartrate/AC 10-325 mg) 1 Tab Tab, 1 TAB PO TID for pain 09/22/23 Tizanidine Hydrochloride (TIZANIDINE HCL) 2 Mg Cap, 1 CAP PO HS PRN for FOR MUSCLE SPASM 09/22/23 Metformin Hydrochloride (Metformin Hcl) 500 Mg Tab, 2 TAB PO BID 06/12/23 Current Medications Current Medications Medications (Trade) Dose Ordered Sig/Juanita Route PRN Reason Start Time Stop Time Status Last Admin Dextrose 10 ml Q4HP PRN IV Blood Sugar LESS THAN 60 03/06/24 20:45 Hold Dextrose/Sodium Chloride 1,000 ml @ 100 mls/hr Q10H IV 03/06/24 20:45 03/07/24 05:54 DC 03/06/24 21:13 Ceftriaxone Sodium 50 ml @ 100 mls/hr DAILY@09 IV 03/06/24 20:55 03/07/24 09:59 Heparin Sodium (Porcine) 5,000 units Q12HR SC 03/07/24 00:30 03/07/24 10:25 Dextrose 1,000 ml @ 40 mls/hr Q24H IV 03/07/24 00:30 03/07/24 00:49 Finasteride (Proscar Tablet) 5 mg DAILY PO 03/07/24 10:00 03/07/24 10:04 Patient Own Medication 1 cap DAILY PO 03/07/24 10:00 Hold Patient Own Medication 25 mg QIDP PRN PO ANXIETY 03/07/24 00:45 03/07/24 01:06 DC Hydroxyzine Pamoate (Vistaril Oral) 25 mg Q6H PRN PO ANXIETY 03/07/24 01:15 Vancomycin HCl 0 ml @ 0 mls/hr UD IV 03/07/24 03:30 Acetaminophen (Tylenol Tablet) 650 mg Q6HPRN PRN PO TEMP GREATER THAN 100.4 03/07/24 04:15 Acetaminophen/ Hydrocodone Bitart ([place] 5/325MG Tab) 1 tab Q6HPRN PRN PO PAIN SCALE 1 THRU 6 03/07/24 04:15 Ondansetron HCl (Zofran) 4 mg Q6HPRN PRN IV NAUSEA / VOMITING 03/07/24 04:15 Diagnostic Test (Pha) (Accu-Chek Comfort Curve T) 1 strip Q4HR 03/07/24 06:00 03/07/24 10:01 Sodium Chloride 1,000 ml @ 100 mls/hr Q10H IV 03/07/24 06:00 03/07/24 10:11 DC 03/07/24 06:00 Sodium Bicarbonate 50 ml/ Sodium Chloride 1,050 ml @ 100 mls/hr [id number] IV 03/07/24 10:15 03/07/24 12:48 Family History: FH: breast cancer Grandma FH: colon cancer Grandma FH: emphysema G8 FATHER FH: heart attack G8 FATHER FH: lung cancer FH: lung disease G8 FATHER FH: pancreatic cancer Cousin Cousin FH: smoking G8 FATHER Review of Systems All 12 item review of systems reviewed with the patient nonsignificant except what is mentioned in the history of present illness H&P Exam Vital Signs/I&O Vital Sign Date Time Temp Pulse Resp B/P (MAP) Pulse Ox O2 Delivery O2 Flow Rate FiO2 03/07/24 13:01 97 17 91/59 (70) 100 03/07/24 12:00 97.8 97.8 03/07/24 08:00 Nasal Cannula* 2 28 Intake and Output 03/06/24 03/07/24 19:00 07:00 Intake Total 1970 ml Output Total 800 ml Balance 1170 ml Intake Oral 240 ml IV Total 1730 ml Output Urine Total 800 ml Physical Exam Patient is awake alert appeared in no acute distress Lungs clear to auscultation bilaterally Cardiac exam regular rate and rhythm GI soft nontender enlarged prostate Extremities no clubbing cyanosis or edema Neuro nonfocal Labs/Diagnostic Data Labs/Diagnostic Data Laboratory Tests Test 03/07/24 13:20 03/07/24 11:26 03/07/24 11:05 03/07/24 10:00 Range/Units POC Glucose 189 H 183 H 192 H 70-106 mg/dl Lactic Acid Level 2.4 *H 0.4-2.0 mmol/L Vitamin D 25-Hydroxy 47.5 30.0-100 ng/mL Hepatitis B Surface Antigen Negative Negative Hepatitis C Antibody Negative Negative Test 03/07/24 05:39 03/07/24 04:45 03/07/24 03:02 03/07/24 02:49 Range/Units POC Glucose 199 H 131 H 70-106 mg/dl White Blood Count 13.9 H 4.4-10.8 10^3/uL Red Blood Count 3.38 L 4.5-5.90 10^6/uL Hemoglobin 9.9 L 13.5-17.5 g/dL Hematocrit 29.4 #L 41.0-53.0 % Mean Corpuscular Volume 87.1 80.0-100.0 fL Mean Corpuscular Hemoglobin 29.3 28.0-32.0 pg Mean Corpuscular Hemoglobin Concent 33.6 32.0-36.0 g/dL Red Cell Distribution Width 18.4 H 11.8-14.3 % Platelet Count 960 *H 140-450 10^3/uL Mean Platelet Volume 6.1 L 6.9-10.8 fL Neutrophils (%) (Auto) 87.0 H 37.0-80.0 % Lymphocytes (%) (Auto) 8.4 L 10.0-50.0 % Monocytes (%) (Auto) 4.4 0.0-12.0 % Eosinophils (%) (Auto) 0.1 0.0-7.0 % Basophils (%) (Auto) 0.1 0.0-2.0 % Neutrophils # (Auto) 12.1 H 1.6-8.6 10 ^3/uL Lymphocytes # (Auto) 1.2 0.4-5.4 10 ^3/uL Monocytes # (Auto) 0.6 0-1.3 10 ^3/uL Eosinophils # (Auto) 0 0-0.8 10 ^3/uL Basophils # (Auto) 0 0-0.2 10 ^3/uL Nucleated Red Blood Cells 0.0 % Sodium Level 127 L 136-145 mmol/L Potassium Level 4.3 3.5-5.1 mmol/L Chloride Level 98 98-107 mmol/L Carbon Dioxide Level 21 20-31 mmol/L Anion Gap 8 5-15 Blood Urea Nitrogen 26 H 9-23 mg/dL Creatinine 1.61 H 0.700-1.30 mg/dL Glomerular Filtration Rate Calc 47 >90 mL/min BUN/Creatinine Ratio 16.1 10.0-20.0 Serum Glucose 197 H 74-106 mg/dL Hemoglobin A1c 7.5 H <5.7 % A1C Lactic Acid Level 4.3 *H 0.4-2.0 mmol/L Calcium Level 9.6 8.7-10.4 mg/dL Urine Color Light-brown Yellow Urine Clarity Ex.turbid Clear Urine pH 6.0 5.0-9.0 Urine Specific [place] 1.010 1.001-1.035 Urine Protein 1+ H Negative Urine Ketones Negative Negative Urine Blood 3+ H Negative /uL Urine Nitrite Negative Negative Urine Bilirubin Negative Negative Urine Urobilinogen Normal Negative mg/dL Urine Leukocyte Esterase 3+ Negative /uL Urine RBC 162 0 - 3 /hpf Urine WBC 4344 0 - 3 /hpf Urine WBC Clumps Present None Seen /hpf Urine Squamous Epithelial Cells None seen <5 /hpf Urine Bacteria Many H None Seen /hpf Urine Mucus Few None Seen Urine Glucose 4+ H Normal mg/dL Test 03/07/24 02:01 03/07/24 02:00 03/07/24 01:10 03/07/24 00:19 Range/Units POC Glucose 120 H 103 29 *L 70-106 mg/dl Sodium Level 127 L 136-145 mmol/L Potassium Level 5.1 3.5-5.1 mmol/L Chloride Level 100 98-107 mmol/L Carbon Dioxide Level 19 L 20-31 mmol/L Anion Gap 8 5-15 Blood Urea Nitrogen 25 H 9-23 mg/dL Creatinine 1.72 H 0.700-1.30 mg/dL Glomerular Filtration Rate Calc 44 >90 mL/min BUN/Creatinine Ratio 14.5 10.0-20.0 Serum Glucose 121 H 74-106 mg/dL Lactic Acid Level 4.3 *H 0.4-2.0 mmol/L Uric Acid 6.9 3.7-9.2 mg/dL Calcium Level 9.9 8.7-10.4 mg/dL Phosphorus Level 3.4 2.4-5.1 mg/dL Magnesium Level 1.6 1.6-2.6 mg/dL B-Type Natriuretic Peptide 44.22 0-100 pg/mL Parathyroid Hormone (Intact) 19.0 18.4-80.1 pg/mL Test 03/07/24 00:17 03/07/24 00:10 03/06/24 22:15 03/06/24 21:55 Range/Units POC Glucose 40 *L 70-106 mg/dl Lactic Acid Level 3.0 *H 0.4-2.0 mmol/L Sodium Level 125 L 136-145 mmol/L Potassium Level 5.5 H 3.5-5.1 mmol/L Chloride Level 94 L 98-107 mmol/L Carbon Dioxide Level 20 20-31 mmol/L Anion Gap 11 5-15 Blood Urea Nitrogen 29 H 9-23 mg/dL Creatinine 1.81 H 0.700-1.30 mg/dL Glomerular Filtration Rate Calc 41 >90 mL/min BUN/Creatinine Ratio 16.0 10.0-20.0 Serum Glucose 97 74-106 mg/dL Calcium Level 9.8 8.7-10.4 mg/dL Ammonia 14 11-32 umol/L White Blood Count 14.5 H 4.4-10.8 10^3/uL Red Blood Count 3.94 L 4.5-5.90 10^6/uL Hemoglobin 11.2 L 13.5-17.5 g/dL Hematocrit 34.5 L 41.0-53.0 % Mean Corpuscular Volume 87.6 80.0-100.0 fL Mean Corpuscular Hemoglobin 28.4 28.0-32.0 pg Mean Corpuscular Hemoglobin Concent 32.5 32.0-36.0 g/dL Red Cell Distribution Width 18.5 H 11.8-14.3 % Platelet Count 978 *H 140-450 10^3/uL Mean Platelet Volume 5.6 L 6.9-10.8 fL Neutrophils (%) (Auto) 90.4 H 37.0-80.0 % Lymphocytes (%) (Auto) 6.4 L 10.0-50.0 % Monocytes (%) (Auto) 2.8 0.0-12.0 % Eosinophils (%) (Auto) 0.1 0.0-7.0 % Basophils (%) (Auto) 0.3 0.0-2.0 % Neutrophils # (Auto) 13.1 H 1.6-8.6 10 ^3/uL Lymphocytes # (Auto) 0.9 0.4-5.4 10 ^3/uL Monocytes # (Auto) 0.4 0-1.3 10 ^3/uL Eosinophils # (Auto) 0 0-0.8 10 ^3/uL Basophils # (Auto) 0 0-0.2 10 ^3/uL Nucleated Red Blood Cells 0.0 % Platelet Estimate Markedly increased Large Platelets Few Test 03/06/24 20:45 Range/Units POC Glucose 163 H 70-106 mg/dl Microbiology Date/Time Source Procedure Growth Status 03/06/24 23:30 Nose MRSA Screen - Final Complete Assessment ALBERT superimposed on CKD secondary to hemodynamic mediated Uncontrolled DM hypoglycemia BPH with lots Sepsis UTI Anemia of CKD Thrombocytosis Hyperkalemia, likely spurious hyperkalemia due to thrombocytosis REC: Closely monitor fluids and lytes Avoid nephrotoxins, d/c vancomycin Calhoun's catheter Strict I&O's Renal diet check urine lytes and protein Check kidney US IV Abx check ferritin and iron studies Hematology consult Urology consult Will continue to follow Patient seen and examined by myself. I discussed my plan of care with the patient and primary nurse at the bedside I would like to thank Esther for the consult, will follow up Plan discussed with: Patient DANIKA WEI MD Mar 07, 2024 09:41
[2024-03-07] MEDS ORDERED: PATIENTS OWN MEDICATION (Duloxetine Hcl (Cymbalta) 1 CAP) PO SCH (10:00)
[2024-03-07] MEDS: FINASTERIDE 5 MG TAB PO SCH (10:04)
[2024-03-07 11:04] LABS: Uric Acid 6.9 mg/dL (3.7-9.2)
[2024-03-07 11:06] LABS: Magnesium 1.6 mg/dL (1.6-2.6)
[2024-03-07 11:07] LABS: Phosphorus 3.4 mg/dL (2.4-5.1)
--- NOTE | 2024-03-07 11:36 | DVH ---
RENAL ULTRASOUND CLINICAL HISTORY: christopher TECHNIQUE: Multiple ultrasound images of the kidneys and bladder were obtained. COMPARISON: None FINDINGS: The right kidney measures 9.5 cm in length. The left kidney measures 13.1 cm. The kidneys appear echo genic May relate to medical renal disease. There is bilateral renal hydronephrosis. Are bilateral frankie al calculi, the largest in the midpole of the left kidney measuring 1.2 cm. There is a nonspecific 2. 4 x 1.7 cm nonshadowing echogenic nodular structure in the upper pole of the right kidney. This may represent a renal angiomyolipoma. There is dependent layering heterogeneous contents along the posterior bladder which may represent de bris. The bladder wall appears mildly thickened. IMPRESSION: 1. There are bilateral renal calculi measuring up to 1.2 cm in the midpole of the left kidney. There is bilateral hydronephrosis. 2. Nonspecific 2.4 x 1.7 cm nonshadowing echogenic nodular structure in the upper pole of the right k idney. This may represent an angiomyolipoma. 3. There is dependently layering heterogeneous contents along the posterior bladder which may represe nt debris. Clinical correlation and further evaluation with cystoscopy is recommended. HS:Y
[2024-03-07] MEDS: SODIUM BICARB 50mEq/50ml Vial 50 ML in SOD CHL 0.45% 1,000 ML IV SCH (12:48)
[2024-03-07 13:00] LABS: Hepatitis B Surface Antigen Negative (Negative)
[2024-03-07 13:17] LABS: Lactic Acid w/Reflex 2.4 mmol/L (0.4-2.0)
[2024-03-07 13:21] LABS: Hepatitis C Antibody Negative (Negative)
--- NOTE | 2024-03-07 14:39 | DVHINCON2 ---
Date of service: Mar 07, 2024 Referring Physician Onel Reddy MD Reason for Consultation sepsis History of Present Illness Mr. Clive Peres is a 63 year old male with past medical history of anxiety, depression, DM, ostearthritis who presents as a direct admit from [facility] ED as per O insurance request. He is bed-bound since last two years and lives in boarding facility. Patient presented with low blood sugar at [facility] ED. Patient was found to have WBC 15.17, H&H 11.5/34.1, Platelets 946, INR 1.0, PT 11.2, Na 124, K 6.0, 4.7, BUN 44/2.28, Lactate 4.7, 3.4, CXR: unremarkable. She also had altered level of consciousness upon presentation. Hence is unable to provide much information. Patient with multiple wounds right knee, right foot, sacrum and back. Patient reports he lives at a boarding care and has his glucose levels monitored, also reports poor appetite. He is currently in the ICU. CT pelvis shows distended bladder with enlarged prostate. he did complains of some urinary issue prior to coming in Patient alert and oriented x4 denies chest pain, dyspnea, nausea, vomiting, abdominal pain, diarrhea, dysuria, hematuria. Past Medical History (1) Sepsis (2) Multiple episodes of hypoglycemia (3) Acute kidney injury (4) Hyperkalemia (5) Thrombocytosis (60 anxiety (7)depression (8) Diabetes mellitus (9) osteoarthritis Family History: FH: breast cancer Grandma FH: colon cancer Grandma FH: emphysema G8 FATHER FH: heart attack G8 FATHER FH: lung cancer FH: lung disease G8 FATHER FH: pancreatic cancer Cousin Cousin FH: smoking G8 FATHER Allergies: Coded Allergies: No Known Drug Allergy (Verified Allergy, Unknown, 11/24/22) Home Meds Active Scripts Finasteride (Finasteride) 5 Mg Tab, 1 TAB PO DAILY, #90 TAB 1 Refill Prov:JOHN DRISCOLL MD 09/25/23 Sulfamethoxazole W/Trimethopri (Bactrim Ds Tablet) 1 Tab Tb, 1 TAB PO BID, #10 TAB Prov:JOHN DRISCOLL MD 09/25/23 Reported Medications Insulin Glargine (Basaglar Kwikpen) 100 Unit/Ml Inj, 20 UNIT SC DAILY, INJ 03/06/24 Ferrous Sulfate (Iron) 28 Mg Tab, 65 MG PO, TAB 03/06/24 Hydroxyzine Hcl (Hydroxyzine Hcl) 25 Mg Tab, 25 MG PO QIDP PRN for ANXIETY for 30 Days, MG 03/06/24 Duloxetine Hcl (Cymbalta) 20 Mg Cap, 1 CAP PO DAILY, #30 CAP 03/06/24 Hydrocodone-Acetaminophen (Hydrocodone Bitartrate/AC 10-325 mg) 1 Tab Tab, 1 TAB PO TID for pain 09/22/23 Tizanidine Hydrochloride (TIZANIDINE HCL) 2 Mg Cap, 1 CAP PO HS PRN for FOR MUSCLE SPASM 09/22/23 Metformin Hydrochloride (Metformin Hcl) 500 Mg Tab, 2 TAB PO BID 06/12/23 Current Medications Current Medications Medications (Trade) Dose Ordered Sig/Juanita Route PRN Reason Start Time Stop Time Status Last Admin Dextrose 10 ml Q4HP PRN IV Blood Sugar LESS THAN 60 03/06/24 20:45 Hold Dextrose/Sodium Chloride 1,000 ml @ 100 mls/hr Q10H IV 03/06/24 20:45 03/07/24 05:54 DC 03/06/24 21:13 Ceftriaxone Sodium 50 ml @ 100 mls/hr DAILY@09 IV 03/06/24 20:55 03/07/24 09:59 Heparin Sodium (Porcine) 5,000 units Q12HR SC 03/07/24 00:30 03/07/24 10:25 Dextrose 1,000 ml @ 40 mls/hr Q24H IV 03/07/24 00:30 03/07/24 00:49 Finasteride (Proscar Tablet) 5 mg DAILY PO 03/07/24 10:00 03/07/24 10:04 Patient Own Medication 1 cap DAILY PO 03/07/24 10:00 Hold Patient Own Medication 25 mg QIDP PRN PO ANXIETY 03/07/24 00:45 03/07/24 01:06 DC Hydroxyzine Pamoate (Vistaril Oral) 25 mg Q6H PRN PO ANXIETY 03/07/24 01:15 Vancomycin HCl 0 ml @ 0 mls/hr UD IV 03/07/24 03:30 Acetaminophen (Tylenol Tablet) 650 mg Q6HPRN PRN PO TEMP GREATER THAN 100.4 03/07/24 04:15 Acetaminophen/ Hydrocodone Bitart ([place] 5/325MG Tab) 1 tab Q6HPRN PRN PO PAIN SCALE 1 THRU 6 03/07/24 04:15 Ondansetron HCl (Zofran) 4 mg Q6HPRN PRN IV NAUSEA / VOMITING 03/07/24 04:15 Diagnostic Test (Pha) (Accu-Chek Comfort Curve T) 1 strip Q4HR 03/07/24 06:00 03/07/24 10:01 Sodium Chloride 1,000 ml @ 100 mls/hr Q10H IV 03/07/24 06:00 03/07/24 10:11 DC 03/07/24 06:00 Sodium Bicarbonate 50 ml/ Sodium Chloride 1,050 ml @ 100 mls/hr [id number] IV 03/07/24 10:15 03/07/24 12:48 Enteral Nutritional Formula (Glucerna Carbsteady SHAKE) 240 ml TIDWM PO 03/07/24 18:00 UNV Review of Systems All Other Systems low blood glucose levels, poor appetite , failure to thrive Vital Signs Vital Signs Date Time Temp Pulse Resp B/P (MAP) Pulse Ox O2 Delivery O2 Flow Rate FiO2 03/07/24 13:01 97 17 91/59 (70) 100 03/07/24 12:00 97.8 97.8 03/07/24 08:00 Nasal Cannula* 2 28 Physical Exam General Appeara: Cachetic, Thin Head Exam: Normal inspection Neck Exam: Normal inspection, Non-tender, Normal alignment Eye Exam: bilateral eye Normal inspection, bilateral eye PERRL, bilateral eye EOMI Ear Exam: bilateral ear Auricle normal Nasal Exam: Normal inspection Mouth: Normal Inspection Pulmonary/Respiratory: Normal inspection, Normal breath sounds, Chest non- tender, Lungs clear Cardiovascular/Chest: Normal inspection, Regular rate, Normal Rhythm Abdominal Exam: Normal bowel sounds, Soft Rectal Exam: Deferred Back Exam: Other (erythema ) Knees: right knee other (wound) Foot: right foot other (wound) [employer] Exam: Normal hearing, Normal speech, PERRL Neuro/Mental St: Alert, Oriented Appearance: Disheveled, Other (cachetic ) Eye contact/ Speech: Cooperative, Good eye contact, Normal speech Thoughts/Psych: Normal thought pattern Skin Exam: Normal color, Warm/dry, Other (multiple wounds see photos taken by RN. ) Wounds sacrum, back, right knee, right foot wounds Labs/Diagnostic Data Labs Test 03/07/24 13:20 03/07/24 11:05 03/07/24 04:45 03/07/24 02:49 Range/Units POC Glucose 189 H 70-106 mg/dl Lactic Acid Level 2.4 *H 0.4-2.0 mmol/L Vitamin D 25-Hydroxy 47.5 30.0-100 ng/mL Hepatitis B Surface Antigen Negative Negative Hepatitis C Antibody Negative Negative White Blood Count 13.9 H 4.4-10.8 10^3/uL Red Blood Count 3.38 L 4.5-5.90 10^6/uL Hemoglobin 9.9 L 13.5-17.5 g/dL Hematocrit 29.4 #L 41.0-53.0 % Mean Corpuscular Volume 87.1 80.0-100.0 fL Mean Corpuscular Hemoglobin 29.3 28.0-32.0 pg Mean Corpuscular Hemoglobin Concent 33.6 32.0-36.0 g/dL Red Cell Distribution Width 18.4 H 11.8-14.3 % Platelet Count 960 *H 140-450 10^3/uL Mean Platelet Volume 6.1 L 6.9-10.8 fL Neutrophils (%) (Auto) 87.0 H 37.0-80.0 % Lymphocytes (%) (Auto) 8.4 L 10.0-50.0 % Monocytes (%) (Auto) 4.4 0.0-12.0 % Eosinophils (%) (Auto) 0.1 0.0-7.0 % Basophils (%) (Auto) 0.1 0.0-2.0 % Neutrophils # (Auto) 12.1 H 1.6-8.6 10 ^3/uL Lymphocytes # (Auto) 1.2 0.4-5.4 10 ^3/uL Monocytes # (Auto) 0.6 0-1.3 10 ^3/uL Eosinophils # (Auto) 0 0-0.8 10 ^3/uL Basophils # (Auto) 0 0-0.2 10 ^3/uL Nucleated Red Blood Cells 0.0 % Sodium Level 127 L 136-145 mmol/L Potassium Level 4.3 3.5-5.1 mmol/L Chloride Level 98 98-107 mmol/L Carbon Dioxide Level 21 20-31 mmol/L Anion Gap 8 5-15 Blood Urea Nitrogen 26 H 9-23 mg/dL Creatinine 1.61 H 0.700-1.30 mg/dL Glomerular Filtration Rate Calc 47 >90 mL/min BUN/Creatinine Ratio 16.1 10.0-20.0 Serum Glucose 197 H 74-106 mg/dL Hemoglobin A1c 7.5 H <5.7 % A1C Calcium Level 9.6 8.7-10.4 mg/dL Urine Color Light-brown Yellow Urine Clarity Ex.turbid Clear Urine pH 6.0 5.0-9.0 Urine Specific [place] 1.010 1.001-1.035 Urine Protein 1+ H Negative Urine Ketones Negative Negative Urine Blood 3+ H Negative /uL Urine Nitrite Negative Negative Urine Bilirubin Negative Negative Urine Urobilinogen Normal Negative mg/dL Urine Leukocyte Esterase 3+ Negative /uL Urine RBC 162 0 - 3 /hpf Urine WBC 4344 0 - 3 /hpf Urine WBC Clumps Present None Seen /hpf Urine Squamous Epithelial Cells None seen <5 /hpf Urine Bacteria Many H None Seen /hpf Urine Mucus Few None Seen Urine Glucose 4+ H Normal mg/dL Test 03/07/24 02:00 03/06/24 22:15 03/06/24 21:55 Range/Units Uric Acid 6.9 3.7-9.2 mg/dL Phosphorus Level 3.4 2.4-5.1 mg/dL Magnesium Level 1.6 1.6-2.6 mg/dL B-Type Natriuretic Peptide 44.22 0-100 pg/mL Parathyroid Hormone (Intact) 19.0 18.4-80.1 pg/mL Ammonia 14 11-32 umol/L Platelet Estimate Markedly increased Large Platelets Few Microbiology Date/Time Source Procedure Growth Status 03/06/24 23:30 Nose MRSA Screen - Final Complete Assessment 63 yo male with known history of anxiety, depression, DM, osteoarthritis, presents with low blood sugars. Patient found to have 1. Sepsis 2. UTI 3. Obstructive Uropathy 4. Hypoglycemia 5. Hyperkalemia 6. Thrombocytosis 7. Multiple wounds Recommendations Got IV Vancomycin and Ceftriaxone; currently on Ceftriaxone IV fluids D 10% @ 40 ml/hr also on Bicarb serial lactic levels Urinalysis, urine culture; pending follow Plan for [place] catheter ( difficult); Urology consult Follow up with Blood culture results from [facility] Total Critical time spent 40 min during the encounter. reviewed records from [facility]. discussed plan with patient and RN Thank you for consult Plan discussed with: Patient, Other CORRINE BOX MD Mar 07, 2024 14:39
[2024-03-07] MEDS: HYDROcodone-ACET 5/325MG TAB PO PRN (15:28)
--- NOTE | 2024-03-07 17:09 | DVH ---
INDICATION: 63 years old, Male; Hip/pelvic pain. COMPARISON: None TECHNIQUE: CT of the right was performed without contrast. Volume transverse images were obtained a nd reconstructed in multiple planes using bone and soft tissue algorithms. CONTRAST: None Radiation Dose Information: CT Dose: CTDI volume is 22.24 mGy. Dose-length product is 522.16 mGy*cm FINDINGS: Severe osteoarthritic changes are noted to the right hip with subchondral cysts both the acetabulum a nd femoral head suggesting avascular necrosis. There are no findings of acute fracture. There is no fracture, dislocation, or focal osseous lesions. The soft tissues are normal. IMPRESSION: Severe osteoarthritic changes of the right hip. No acute fracture
--- NOTE | 2024-03-07 17:20 | DVH ---
PROCEDURE: MRI BRAIN HEAD WO CONTRAST INDICATION: Altered level of consciousness EXAM DATE: 03/07/2024 04:04 PM COMPARISON: None TECHNIQUE: MRI brain without intravenous contrast. FINDINGS: Diffusion weighted images of the brain demonstrate no evidence of acute infarction. There is no evid ence of intracranial hemorrhage, extra-axial collection, mass effect, midline shift, herniation or hy drocephalus. There is mild cerebral atrophy. There mild periventricular and deep white matter changes consistent with chronic microvascular schema disease. There are no signal abnormalities on the susceptibility weighted sequences. The major vascular flow voids are present. The visualize d paranasal sinuses and mastoid air cells are clear. The surrounding soft tissues and osseous struct ures are otherwise unremarkable. IMPRESSION: 1. Limited exam. No flair images submitted. No acute infarction. Unap-ex-tneytxbq changes of chronic microvascular ischemic disease. Mild cerebral atrophy. HS:Y
--- NOTE | 2024-03-07 17:21 | DVH ---
Exam: CT PELVIS WO CONTRAST History: Hip/pelvic pain Comparison Study: None available at time of dictation. Technique: Multidetector CT of the pelvis was performed from iliac crests to pubic symphysis after th e administration of intravenous contrast was administered during this examination. Portal venous imag ing was obtained. Axial, coronal and sagittal multiplanar reformats were performed by the technASSURED INFORMATION SECURITYis t on a separate workstation. Radiation Dose : CT Dose: CTDI volume is 21.24 mGy. Dose-length product is 522.16 mGy*cm Findings: Visualized bowel: No bowel wall thickening or dilatation. Ascites: Absent Lymphadenopathy: No pelvic or mesenteric lymphadenopathy. Vasculature: The visualized abdominal aorta is normal in size and caliber. Abdominal and pelvic vesse ls demonstrate normal enhancement. Pelvic Organs: Prostate is mildly enlarged and measures 5.8 x 5.8 cm. Correlate with PSA. Musculoskeletal: No acute osseous abnormality. Bladder: Distended with urine Soft tissues: Unremarkable. IMPRESSION: 1. Urinary distention with the bladder. 2. Prostate appears enlarged and measures 5.8 x 5.8 cm. Correlate with PSA. 3. Severe osteoarthritic changes both hips; right worse than left. No acute fracture seen. Marked ir regularity to the right femoral head and right acetabulum. All CT scans at this medical facility are performed using dose modulation techniques as appropriate t o a performed exam including the following: Automated exposure control was utilized; adjustment of th e MA and/or KV according to patient size; and use of iterative reconstruction technique.
--- NOTE | 2024-03-07 17:25 | DVH ---
522.16 INDICATION: 63 years old, Male; Hip/pelvic pain. COMPARISON: None TECHNIQUE: CT of the left was performed without contrast. Volume transverse images were obtained and reconstructed in multiple planes using bone and soft tissue algorithms. CONTRAST: None Radiation Dose Information: CT Dose: CTDI volume is 21.24 mGy. Dose-length product is 522.16 mGy*cm FINDINGS: Severe osteoarthritic changes of the left hip. Irregularity is noted to both the acetabulum and femor al head with multiple subchondral cysts. There is no fracture, dislocation, or focal osseous lesions. The soft tissues are normal. IMPRESSION: No fracture or dislocation. Severe osteoarthritic changes. There is irregularity to both left acetabulum and left femoral head. There is a ring osteophyte around the left femoral head.
[2024-03-07] MEDS: Glucerna Carbsteady SHAKE Chocolate 8oz PO SCH (18:58)
[2024-03-07 19:47] LABS: Creatinine, Urine 18.28 mg/dL (30.0-125.0)
[2024-03-07 19:49] LABS: Protein, Urine 450.1 mg/dL (1-14); Urine Protein/Creatinine Ratio 24.62
[2024-03-07] MEDS: ACETAMINOPHEN 325 MG TAB PO PRN (23:23)
[2024-03-07] MEDS: ONDANSETRON HCL 4 MG/2 ML VIAL IV PRN (23:30)
[2024-03-08] VITALS (21 sets, daily range): BP systolic 103–152; BP diastolic 56–87; PULSE 75–126; RESP 11–28; TEMP 97.6–97.9; O2SAT 98–100
[2024-03-08 07:13] LABS: Basophils # (auto) 0.1 10 ^3/uL (0-0.2); Basophils % (auto) 0.9 % (0.0-2.0); Eosinophils # (auto) 0 10 ^3/uL (0-0.8); Eosinophils % (auto) 0.8 % (0.0-7.0); Hematocrit 30.8 % (41.0-53.0); Hemoglobin 10.3 g/dL (13.5-17.5); Lymphocytes # (auto) 0.9 10 ^3/uL (0.4-5.4); Lymphocytes % (auto) 14.7 % (10.0-50.0); Mean Corpuscular Hemoglobin 29.4 pg (28.0-32.0); Mean Corpuscular Hgb Conc. 33.5 g/dL (32.0-36.0); Mean Corpuscular Volume 87.7 fL (80.0-100.0); Monocytes # (auto) 0.3 10 ^3/uL (0-1.3); Monocytes % (auto) 5.1 % (0.0-12.0); Neutrophils % (auto) 78.5 % (37.0-80.0); Nucleated Red Blood Cells % 0.1 %; Red Blood Cells 3.51 10^6/uL (4.5-5.90); White Blood Cell 6.4 10^3/uL (4.4-10.8)
[2024-03-08 07:17] LABS: Chloride 101 mmol/L (98-107); Potassium 4.7 mmol/L (3.5-5.1); Sodium 130 mmol/L (136-145)
[2024-03-08 07:18] LABS: Anion Gap 7 (5-15); Calcium 9.8 mg/dL (8.7-10.4); Carbon Dioxide 22 mmol/L (20-31)
[2024-03-08 07:24] LABS: BUN/Creatinine Ratio 14.4 (10.0-20.0); Blood Urea Nitrogen 16 mg/dL (9-23); Glucose 180 mg/dL (74-106)
[2024-03-08 07:32] LABS: Platelet Count (auto) 867 10^3/uL (140-450)
--- NOTE | 2024-03-08 08:27 | DVHINCON2 ---
Date of service: Mar 07, 2024 Referring Physician Ellie Hernandez NP Reason for Consultation Reactive thrombocytosis History of Present Illness A 63 years old gentleman with a past history of diabetes, osteoarthritis anxiety and depression. Patient has multiple wounds on the right knee right foot sacrum in the low back. [facility] Patient has a poor appetite. I am consulted with a CBC showing a white count of 13.9 hemoglobin 9.9 platelets [id number] with no previous history of thrombocytosis platelet count in June 27, 2023 was 493 Complaints of any fevers night sweats no bruising or bleeding. The patient is treated for possible sepsis with the antibiotics Past Medical History Diabetes Arthritis Depression/anxiety Family History: FH: breast cancer Grandma FH: colon cancer Grandma FH: emphysema G8 FATHER FH: heart attack G8 FATHER FH: lung cancer FH: lung disease G8 FATHER FH: pancreatic cancer Cousin Cousin FH: smoking G8 FATHER Social History No Smoking or drinking Allergies: Coded Allergies: No Known Drug Allergy (Verified Allergy, Unknown, 11/24/22) Home Meds Active Scripts Finasteride (Finasteride) 5 Mg Tab, 1 TAB PO DAILY, #90 TAB 1 Refill Prov:JOHN DRISCOLL MD 09/25/23 Sulfamethoxazole W/Trimethopri (Bactrim Ds Tablet) 1 Tab Tb, 1 TAB PO BID, #10 TAB Prov:JOHN DRISCOLL MD 09/25/23 Reported Medications Insulin Glargine (Basaglar Kwikpen) 100 Unit/Ml Inj, 20 UNIT SC DAILY, INJ 03/06/24 Ferrous Sulfate (Iron) 28 Mg Tab, 65 MG PO, TAB 03/06/24 Hydroxyzine Hcl (Hydroxyzine Hcl) 25 Mg Tab, 25 MG PO QIDP PRN for ANXIETY for 30 Days, MG 03/06/24 Duloxetine Hcl (Cymbalta) 20 Mg Cap, 1 CAP PO DAILY, #30 CAP 03/06/24 Hydrocodone-Acetaminophen (Hydrocodone Bitartrate/AC 10-325 mg) 1 Tab Tab, 1 TAB PO TID for pain 09/22/23 Tizanidine Hydrochloride (TIZANIDINE HCL) 2 Mg Cap, 1 CAP PO HS PRN for FOR MUSCLE SPASM 09/22/23 Metformin Hydrochloride (Metformin Hcl) 500 Mg Tab, 2 TAB PO BID 06/12/23 Current Medications Current Medications Medications (Trade) Dose Ordered Sig/Juanita Route PRN Reason Start Time Stop Time Status Last Admin Finasteride (Proscar Tablet) 5 mg DAILY PO 03/07/24 10:00 03/07/24 10:04 Patient Own Medication 1 cap DAILY PO 03/07/24 10:00 Hold Sodium Bicarbonate 50 ml/ Sodium Chloride 1,050 ml @ 100 mls/hr [id number] IV 03/07/24 10:15 03/07/24 23:23 Enteral Nutritional Formula (Glucerna Carbsteady SHAKE) 240 ml TIDWM PO 03/07/24 18:00 03/07/24 18:58 Vital Signs Vital Signs Date Time Temp Pulse Resp B/P (MAP) Pulse Ox O2 Delivery O2 Flow Rate FiO2 03/08/24 07:00 89 21 131/80 (97) 99 03/08/24 04:00 97.8 97.8 03/07/24 20:00 Nasal Cannula* 2 28 Physical Exam Moderately built and nourished, in no acute distress, alert and oriented. No jaundice Head and neck: Unremarkable for any masses or neck nodes. No conjunctival or mucosal hemorrhage Lungs: Clear Cardiovascular: S1-S2 heard well Abdomen: No organomegaly, tenderness or ascites. Bowel sounds are present. Extremities: No clubbing edema cyanosis or calf tenderness. Skin: Unremarkable for petechia purpura ecchymosis. Patient has multiple bones the sacral area low back on the feet Lymphadenopathy: None Neurological exam: No focal deficit Labs/Diagnostic Data Labs Test 03/08/24 06:41 03/08/24 06:08 03/07/24 19:20 03/07/24 18:56 Range/Units White Blood Count 6.4 # 4.4-10.8 10^3/uL Red Blood Count 3.51 L 4.5-5.90 10^6/uL Hemoglobin 10.3 L 13.5-17.5 g/dL Hematocrit 30.8 L 41.0-53.0 % Mean Corpuscular Volume 87.7 80.0-100.0 fL Mean Corpuscular Hemoglobin 29.4 28.0-32.0 pg Mean Corpuscular Hemoglobin Concent 33.5 32.0-36.0 g/dL Red Cell Distribution Width 19.0 H 11.8-14.3 % Platelet Count 867 *H 140-450 10^3/uL Mean Platelet Volume 5.9 L 6.9-10.8 fL Neutrophils (%) (Auto) 78.5 37.0-80.0 % Lymphocytes (%) (Auto) 14.7 10.0-50.0 % Monocytes (%) (Auto) 5.1 0.0-12.0 % Eosinophils (%) (Auto) 0.8 0.0-7.0 % Basophils (%) (Auto) 0.9 0.0-2.0 % Neutrophils # (Auto) 5.0 1.6-8.6 10 ^3/uL Lymphocytes # (Auto) 0.9 0.4-5.4 10 ^3/uL Monocytes # (Auto) 0.3 0-1.3 10 ^3/uL Eosinophils # (Auto) 0 0-0.8 10 ^3/uL Basophils # (Auto) 0.1 0-0.2 10 ^3/uL Nucleated Red Blood Cells 0.1 % Sodium Level 130 L 136-145 mmol/L Potassium Level 4.7 3.5-5.1 mmol/L Chloride Level 101 98-107 mmol/L Carbon Dioxide Level 22 20-31 mmol/L Anion Gap 7 5-15 Blood Urea Nitrogen 16 # 9-23 mg/dL Creatinine 1.11 0.700-1.30 mg/dL Glomerular Filtration Rate Calc 74 >90 mL/min BUN/Creatinine Ratio 14.4 10.0-20.0 Serum Glucose 180 H 74-106 mg/dL Calcium Level 9.8 8.7-10.4 mg/dL POC Glucose 185 H 70-106 mg/dl Urine Osmolality 359 mOsm/kg Urine Creatinine 18.28 L 30.0-125.0 mg/dL Urine Protein/Creatinine Ratio 24.62 Urine Sodium 86 40-220 mmol/L Urine Total Protein 450.1 H 1-14 mg/dL Lactic Acid Level 2.1 H 0.4-2.0 mmol/L Test 03/07/24 11:05 03/07/24 04:45 03/07/24 02:49 03/07/24 02:00 Range/Units Vitamin D 25-Hydroxy 47.5 30.0-100 ng/mL Hepatitis B Surface Antigen Negative Negative Hepatitis C Antibody Negative Negative Hemoglobin A1c 7.5 H <5.7 % A1C Urine Color Light-brown Yellow Urine Clarity Ex.turbid Clear Urine pH 6.0 5.0-9.0 Urine Specific [place] 1.010 1.001-1.035 Urine Protein 1+ H Negative Urine Ketones Negative Negative Urine Blood 3+ H Negative /uL Urine Nitrite Negative Negative Urine Bilirubin Negative Negative Urine Urobilinogen Normal Negative mg/dL Urine Leukocyte Esterase 3+ Negative /uL Urine RBC 162 0 - 3 /hpf Urine WBC 4344 0 - 3 /hpf Urine WBC Clumps Present None Seen /hpf Urine Squamous Epithelial Cells None seen <5 /hpf Urine Bacteria Many H None Seen /hpf Urine Mucus Few None Seen Urine Glucose 4+ H Normal mg/dL Uric Acid 6.9 3.7-9.2 mg/dL Phosphorus Level 3.4 2.4-5.1 mg/dL Magnesium Level 1.6 1.6-2.6 mg/dL B-Type Natriuretic Peptide 44.22 0-100 pg/mL Parathyroid Hormone (Intact) 19.0 18.4-80.1 pg/mL Test 03/06/24 22:15 03/06/24 21:55 Range/Units Ammonia 14 11-32 umol/L Platelet Estimate Markedly increased Large Platelets Few Microbiology Date/Time Source Procedure Growth Status 03/06/24 23:30 Nose MRSA Screen - Final Complete Assessment 1. Leukocytosis thrombocytosis which seems to be reactive secondary to multiple wounds 2. CT of the pelvis showing urinary distention prostate is enlarged and severe osteoarthritic changes 3. Uncontrolled diabetes and had hypoglycemia 4. Renal insufficiency 5. UTI Plan/Recommendation Treat the underlying cause of infection and follow onto the CBC if the patient still has elevated white cells and the platelets then he could be evaluated as an outpatient Plan discussed with: Patient CORAZON CUELLAR MD Mar 08, 2024 08:27
--- NOTE | 2024-03-08 10:25 | DVHPN2 ---
Progress Note - Dictate Date Seen: Mar 08, 2024 Subjective Patient feels better. He is on bicarb drip. inventory taker at bedside. vital signs Vital Sign Date Time Temp Pulse Resp B/P (MAP) Pulse Ox O2 Delivery O2 Flow Rate FiO2 03/08/24 09:00 92 14 131/80 (97) 100 03/08/24 08:00 97.6 97.6 03/08/24 08:00 Room Air* 0 21 Total Intake and Output 03/07/24 03/07/24 03/08/24 15:00 23:00 07:00 Intake Total 1020 ml 900 ml 900 ml Output Total 1600 ml 1600 ml Balance 1020 ml -700 ml -700 ml medications Current Medications Medications Dose Ordered Sig/Juanita Route Start Time Stop Time Status Last Admin Dose Admin Dextrose 10 ml Q4HP PRN IV 03/06/24 20:45 Hold Ceftriaxone Sodium 50 ml @ 100 mls/hr DAILY@09 IV 03/06/24 20:55 03/08/24 08:55 100 MLS/HR Heparin Sodium (Porcine) 5,000 units Q12HR SC 03/07/24 00:30 03/07/24 21:43 5,000 UNITS Finasteride 5 mg DAILY PO 03/07/24 10:00 03/07/24 10:04 5 MG Patient Own Medication 1 cap DAILY PO 03/07/24 10:00 Hold Hydroxyzine Pamoate 25 mg Q6H PRN PO 03/07/24 01:15 Acetaminophen 650 mg Q6HPRN PRN PO 03/07/24 04:15 03/07/24 23:23 650 MG Acetaminophen/ Hydrocodone Bitart 1 tab Q6HPRN PRN PO 03/07/24 04:15 03/08/24 05:01 1 TAB Ondansetron HCl 4 mg Q6HPRN PRN IV 03/07/24 04:15 03/08/24 07:49 4 MG Diagnostic Test (Pha) 1 strip Q4HR 03/07/24 06:00 03/08/24 06:10 1 STRIP Sodium Bicarbonate 50 ml/ Sodium Chloride 1,050 ml @ 100 mls/hr [id number] IV 03/07/24 10:15 03/08/24 08:55 100 MLS/HR Enteral Nutritional Formula 240 ml TIDWM PO 03/07/24 18:00 03/07/24 18:58 240 ML objective General Appeara: Cachetic, Thin Head Exam: Normal inspection Neck Exam: Normal inspection, Non-tender, Normal alignment Eye Exam: bilateral eye Normal inspection, bilateral eye PERRL, bilateral eye EOMI Ear Exam: bilateral ear Auricle normal Nasal Exam: Normal inspection Mouth: Normal Inspection Pulmonary/Respiratory: Normal inspection, Normal breath sounds, Chest non- tender, Lungs clear Cardiovascular/Chest: Normal inspection, Regular rate, Normal Rhythm Abdominal Exam: Normal bowel sounds, Soft Rectal Exam: Deferred Back Exam: Other (erythema ) Knees: right knee other (wound) Foot: right foot other (wound) [employer]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 Patient found to have 1. Sepsis 2. UTI 3. Obstructive Uropathy: BPH 4. Hypoglycemia 5. Hyperkalemia 6. Thrombocytosis 7. Multiple wounds Recommendations Got IV Vancomycin and Ceftriaxone; currently on Ceftriaxone IV fluids D 10% @ 40 ml/hr also on Bicarb serial lactic levels wbc trended down plts slowly tapering Urinalysis, urine culture; pending follow s/p Subramanian catheter ( difficult); Urology consult may need chef de partie subramanian Follow up with Blood culture results from [facility] Total Critical time spent 35 min during the encounter. reviewed records from [facility]. discussed plan with patient and RN Thank you for consult Dietary Evaluation Review Comments: Consider a 2 gNa CCHO-60 diet and offer Jim BID for wound-healing. Expected Outcomes/Goals: gradual weight gain. Plan discussed with: Patient CORRINE BOX MD Mar 08, 2024 10:25
[2024-03-08] MEDS ORDERED: FINASTERIDE 5 MG TAB PO ONE (12:30)
[2024-03-08] MEDS: TAMSULOSIN HYDROCHLORIDE 0.4 MG CAP PO SCH (18:00)
--- NOTE | 2024-03-08 21:20 | DVHPN2 ---
Progress Note - Dictate Date Seen: Mar 08, 2024 Medical Necessity Reason Pt with a Central, PICC or Fol: No Subjective Comfortable in bed. Patient had a Calhoun catheter with a cloudy urine. Mentation is normal. Blood sugars are normal. vital signs Vital Sign Date Time Temp Pulse Resp B/P (MAP) Pulse Ox O2 Delivery O2 Flow Rate FiO2 03/08/24 20:00 Room Air* 0 21 03/08/24 17:13 97.6 80 18 103/56 (72) 99 97.6 Total Intake and Output 03/07/24 03/07/24 03/08/24 15:00 23:00 07:00 Intake Total 1020 ml 900 ml 900 ml Output Total 1600 ml 1600 ml Balance 1020 ml -700 ml -700 ml medications Current Medications Medications Dose Ordered Sig/Juanita Route Start Time Stop Time Status Last Admin Dose Admin Dextrose 10 ml Q4HP PRN IV 03/06/24 20:45 Hold Ceftriaxone Sodium 50 ml @ 100 mls/hr DAILY@09 IV 03/06/24 20:55 03/08/24 08:55 100 MLS/HR Heparin Sodium (Porcine) 5,000 units Q12HR SC 03/07/24 00:30 03/08/24 21:06 5,000 UNITS Patient Own Medication 1 cap DAILY PO 03/07/24 10:00 Hold Hydroxyzine Pamoate 25 mg Q6H PRN PO 03/07/24 01:15 Acetaminophen 650 mg Q6HPRN PRN PO 03/07/24 04:15 03/07/24 23:23 650 MG Acetaminophen/ Hydrocodone Bitart 1 tab Q6HPRN PRN PO 03/07/24 04:15 03/08/24 18:41 1 TAB Ondansetron HCl 4 mg Q6HPRN PRN IV 03/07/24 04:15 03/08/24 16:07 4 MG Diagnostic Test (Pha) 1 strip Q4HR 03/07/24 06:00 03/08/24 21:07 1 STRIP Sodium Bicarbonate 50 ml/ Sodium Chloride 1,050 ml @ 100 mls/hr [id number] IV 03/07/24 10:15 03/08/24 17:45 100 MLS/HR Enteral Nutritional Formula 240 ml TIDWM PO 03/07/24 18:00 03/08/24 18:00 240 ML Tamsulosin HCl 0.4 mg QPM PO 03/08/24 18:00 03/08/24 18:00 0.4 MG Finasteride 5 mg DAILY PO 03/09/24 10:00 objective Alert awake oriented x3. HEENT neck supple no JVD. Heart regular rate and rhythm S1 and S2. Lungs without rales wheezes. Abdomen soft nontender positive bowel sounds. Extremities no edema. laboratory and microbiology Laboratory Tests 03/08/24 06:41 Test 03/08/24 06:41 Range/Units Serum Glucose 180 H 74-106 mg/dL Assessment/Plan MRI of brain shows no acute pathology. CT of the both hips and pelvis shows osteoporosis but no acute fractures. Continue antibiotics for urinary tract infection. Downgrade him to telemetry regular floor. Patient may need to go home with [place] catheter given the urinary retention with a urinary tract infection. Urology consultation is recommended by Infectious Disease. Further clinical management per clinical course. Discussed with the patient and nurse regarding care plan. Problems(with codes): (1) Dehydration (2) Chronic pain syndrome (3) Metabolic encephalopathy (4) Degenerative joint disease of both hips (5) Thrombocytosis (6) Acute kidney injury (7) Multiple episodes of hypoglycemia Dietary Evaluation Review Comments: Consider a 2 gNa CCHO-60 diet and offer Jim BID for wound-healing. Expected Outcomes/Goals: gradual weight gain. Plan discussed with: Other JOHN DRISCOLL MD Mar 08, 2024 21:20
[2024-03-09] VITALS (10 sets, daily range): BP systolic 114–138; BP diastolic 75–88; PULSE 86–102; RESP 17–20; TEMP 97.7–98.2; O2SAT 97–99
[2024-03-09 06:09] LABS: Basophils # (auto) 0 10 ^3/uL (0-0.2); Eosinophils # (auto) 0 10 ^3/uL (0-0.8); Eosinophils % (auto) 0.2 % (0.0-7.0); Lymphocytes # (auto) 0.6 10 ^3/uL (0.4-5.4); Monocytes # (auto) 0.2 10 ^3/uL (0-1.3)
[2024-03-09 06:11] LABS: Basophils % (auto) 0.3 % (0.0-2.0); Hematocrit 30.2 % (41.0-53.0); Hemoglobin 10.3 g/dL (13.5-17.5); Lymphocytes % (auto) 11.4 % (10.0-50.0); Mean Corpuscular Hemoglobin 29.6 pg (28.0-32.0); Mean Corpuscular Volume 87.1 fL (80.0-100.0); Monocytes % (auto) 3.1 % (0.0-12.0); Neutrophils # (auto) 4.6 10 ^3/uL (1.6-8.6); Nucleated Red Blood Cells % 0.1 %; Red Blood Cells 3.47 10^6/uL (4.5-5.90); White Blood Cell 5.5 10^3/uL (4.4-10.8)
[2024-03-09 06:22] LABS: Platelet Count (auto) 864 10^3/uL (140-450)
[2024-03-09 06:24] LABS: Chloride 99 mmol/L (98-107); Potassium 4.3 mmol/L (3.5-5.1); Sodium 130 mmol/L (136-145)
[2024-03-09 06:25] LABS: Anion Gap 9 (5-15); Carbon Dioxide 22 mmol/L (20-31)
[2024-03-09 06:26] LABS: Calcium 9.6 mg/dL (8.7-10.4)
[2024-03-09 06:30] LABS: BUN/Creatinine Ratio 15.7 (10.0-20.0); Blood Urea Nitrogen 13 mg/dL (9-23); Glucose 215 mg/dL (74-106)
[2024-03-09] MEDS: FINASTERIDE 5 MG TAB PO SCH (10:21)
--- NOTE | 2024-03-09 14:07 | DVHPN2 ---
Progress Note - Dictate Date Seen: Mar 09, 2024 Medical Necessity Reason Pt with a Central, PICC or Fol: No Subjective Patient was seen and evaluated, he feels better. Patient had a Subramanian catheter with a cloudy urine. He is on bicarb drip. order dispatcher chief at bedside. vital signs Vital Sign Date Time Temp Pulse Resp B/P (MAP) Pulse Ox O2 Delivery O2 Flow Rate FiO2 03/09/24 12:00 92 03/09/24 09:23 98.1 18 134/85 (101) 99 98.1 03/09/24 08:00 Room Air* 0 21 Total Intake and Output 03/08/24 03/08/24 03/09/24 15:00 23:00 07:00 Intake Total 900 ml 620 ml 550 ml Output Total 1250 ml 1900 ml Balance 900 ml -630 ml -1350 ml medications Current Medications Medications Dose Ordered Sig/Juanita Route Start Time Stop Time Status Last Admin Dose Admin Dextrose 10 ml Q4HP PRN IV 03/06/24 20:45 Hold Ceftriaxone Sodium 50 ml @ 100 mls/hr DAILY@09 IV 03/06/24 20:55 03/09/24 10:21 100 MLS/HR Heparin Sodium (Porcine) 5,000 units Q12HR SC 03/07/24 00:30 03/09/24 10:22 5,000 UNITS Patient Own Medication 1 cap DAILY PO 03/07/24 10:00 Hold Hydroxyzine Pamoate 25 mg Q6H PRN PO 03/07/24 01:15 Acetaminophen 650 mg Q6HPRN PRN PO 03/07/24 04:15 03/07/24 23:23 650 MG Acetaminophen/ Hydrocodone Bitart 1 tab Q6HPRN PRN PO 03/07/24 04:15 03/09/24 06:54 1 TAB Ondansetron HCl 4 mg Q6HPRN PRN IV 03/07/24 04:15 03/08/24 16:07 4 MG Diagnostic Test (Pha) 1 strip Q4HR 03/07/24 06:00 03/09/24 10:21 1 STRIP Sodium Bicarbonate 50 ml/ Sodium Chloride 1,050 ml @ 100 mls/hr [id number] IV 03/07/24 10:15 03/09/24 04:15 100 MLS/HR Enteral Nutritional Formula 240 ml TIDWM PO 03/07/24 18:00 03/09/24 08:00 240 ML Tamsulosin HCl 0.4 mg QPM PO 03/08/24 18:00 03/08/24 18:00 0.4 MG Finasteride 5 mg DAILY PO 03/09/24 10:00 03/09/24 10:21 5 MG objective General Appeara: Cachetic, Thin Head Exam: Normal inspection Neck Exam: Normal inspection, Non-tender, Normal alignment Eye Exam: bilateral eye Normal inspection, bilateral eye PERRL, bilateral eye EOMI Ear Exam: bilateral ear Auricle normal Nasal Exam: Normal inspection Mouth: Normal Inspection Pulmonary/Respiratory: Normal inspection, Normal breath sounds, Chest non- tender, Lungs clear Cardiovascular/Chest: Normal inspection, Regular rate, Normal Rhythm Abdominal Exam: Normal bowel sounds, Soft Rectal Exam: Deferred Back Exam: Other (erythema ) Knees: right knee other (wound) Foot: right foot other (wound) 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 Patient found to have 1. Sepsis 2. UTI 3. Obstructive Uropathy: BPH 4. Hypoglycemia 5. Hyperkalemia 6. Thrombocytosis 7. Multiple wounds Recommendations Got IV Vancomycin and Ceftriaxone; currently on Ceftriaxone IV fluids D 10% @ 40 ml/hr also on Bicarb serial lactic levels wbc trended down plts slowly tapering Urinalysis, urine culture; pending follow s/p Subramanian catheter ( difficult); Urology consult may need senior care subramanian Follow up with Blood culture results from [facility] Total Critical time spent 35 min during the encounter. reviewed records from [facility]. discussed plan with patient and RN Thank you for consult Dietary Evaluation Review Comments: Consider a 2 gNa CCHO-60 diet and offer Jim BID for wound-healing. Expected Outcomes/Goals: gradual weight gain. CORRINE BOX MD Mar 09, 2024 14:06
--- NOTE | 2024-03-09 17:07 | DVHPN2 ---
Progress Note - Dictate Date Seen: Mar 09, 2024 Medical Necessity Reason Pt with a Central, PICC or Fol: No Subjective Comfortable in bed. No complaints. Blood sugars in the 150-200 range. vital signs Vital Sign Date Time Temp Pulse Resp B/P (MAP) Pulse Ox O2 Delivery O2 Flow Rate FiO2 03/09/24 13:00 98.2 101 18 114/77 (89) 98 98.2 03/09/24 08:00 Room Air* 0 21 Total Intake and Output 03/08/24 03/08/24 03/09/24 15:00 23:00 07:00 Intake Total 900 ml 620 ml 550 ml Output Total 1250 ml 1900 ml Balance 900 ml -630 ml -1350 ml medications Current Medications Medications Dose Ordered Sig/Juanita Route Start Time Stop Time Status Last Admin Dose Admin Dextrose 10 ml Q4HP PRN IV 03/06/24 20:45 Hold Ceftriaxone Sodium 50 ml @ 100 mls/hr DAILY@09 IV 03/06/24 20:55 03/09/24 10:21 100 MLS/HR Heparin Sodium (Porcine) 5,000 units Q12HR SC 03/07/24 00:30 03/09/24 10:22 5,000 UNITS Patient Own Medication 1 cap DAILY PO 03/07/24 10:00 Hold Hydroxyzine Pamoate 25 mg Q6H PRN PO 03/07/24 01:15 Acetaminophen 650 mg Q6HPRN PRN PO 03/07/24 04:15 03/07/24 23:23 650 MG Acetaminophen/ Hydrocodone Bitart 1 tab Q6HPRN PRN PO 03/07/24 04:15 03/09/24 06:54 1 TAB Ondansetron HCl 4 mg Q6HPRN PRN IV 03/07/24 04:15 03/08/24 16:07 4 MG Diagnostic Test (Pha) 1 strip Q4HR 03/07/24 06:00 03/09/24 14:00 1 STRIP Sodium Bicarbonate 50 ml/ Sodium Chloride 1,050 ml @ 100 mls/hr [id number] IV 03/07/24 10:15 03/09/24 14:45 100 MLS/HR Enteral Nutritional Formula 240 ml TIDWM PO 03/07/24 18:00 03/09/24 12:00 240 ML Tamsulosin HCl 0.4 mg QPM PO 03/08/24 18:00 03/08/24 18:00 0.4 MG Finasteride 5 mg DAILY PO 03/09/24 10:00 03/09/24 10:21 5 MG objective Alert awake oriented x3. HEENT neck supple no JVD. Heart regular rate and rhythm S1 and S2. Lungs without rales wheezes. Abdomen soft nontender positive bowel sounds. Extremities no edema. laboratory and microbiology Laboratory Tests 03/09/24 05:14 Test 03/09/24 05:14 Range/Units Serum Glucose 215 H 74-106 mg/dL Assessment/Plan Urology has not evaluated the patient. Patient is clinically stable. Continue current antibiotics. I will resume his metformin given his blood sugars have improved. We will have social Service and human services case manager involved for home Calhoun catheter care. Patient will have outpatient follow up with the Urology for urinary retention and further management. Otherwise continue rest of supportive care and treatment if he remains stable consider discharge home tomorrow with outpatient follow up as mentioned. Discussed with the patient verbalized understanding and agree with the discharge care plan. Discussed also with the nurse at bedside. Problems(with codes): (1) Degenerative joint disease of both hips (2) Chronic pain syndrome (3) Acute kidney injury (4) UTI (urinary tract infection) (5) Failure to thrive (6) Hypoglycemic episode in patient with diabetes mellitus Dietary Evaluation Review Comments: Consider a 2 gNa CCHO-60 diet and offer Jim BID for wound-healing. Expected Outcomes/Goals: gradual weight gain. Plan discussed with: Other JOHN DRISCOLL MD Mar 09, 2024 17:07
[2024-03-09] MEDS: metFORMIN HYDROCHLORIDE 500 MG TAB PO SCH (18:04)
[2024-03-09] MEDS: BETHANECHOL CHLORIDE 25 MG TAB PO SCH (22:54)
[2024-03-10] VITALS (7 sets, daily range): BP systolic 105–133; BP diastolic 73–90; PULSE 101–119; RESP 18–22; TEMP 97.2–98.2; O2SAT 98–100
--- NOTE | 2024-03-10 09:46 | DVHPN2 ---
Progress Note - Dictate Date Seen: Mar 10, 2024 Medical Necessity Reason Pt with a Central, PICC or Fol: No Subjective Patient was seen and evaluated, he feels better. Patient had a Subramanian catheter with a cloudy urine. He is on bicarb drip. roller staker at bedside. BLOOD SUGAR LAB VALUES > 200 Ceftraixone was stopped today 03/10 Switched from ceftriaxone to cefepime today 03/10 due to morganella morgannie culture senstivity reports vital signs Vital Sign Date Time Temp Pulse Resp B/P (MAP) Pulse Ox O2 Delivery O2 Flow Rate FiO2 03/10/24 09:05 97.8 116 18 105/73 (84) 99 97.8 03/10/24 08:00 Room Air* 0 21 Total Intake and Output 03/09/24 03/09/24 03/10/24 15:00 23:00 07:00 Intake Total 120 ml Output Total 1100 ml 200 ml Balance -980 ml -200 ml medications Current Medications Medications Dose Ordered Sig/Juanita Route Start Time Stop Time Status Last Admin Dose Admin Dextrose 10 ml Q4HP PRN IV 03/06/24 20:45 Hold Ceftriaxone Sodium 50 ml @ 100 mls/hr DAILY@09 IV 03/06/24 20:55 03/09/24 10:21 100 MLS/HR Heparin Sodium (Porcine) 5,000 units Q12HR SC 03/07/24 00:30 03/09/24 22:55 5,000 UNITS Patient Own Medication 1 cap DAILY PO 03/07/24 10:00 Hold Hydroxyzine Pamoate 25 mg Q6H PRN PO 03/07/24 01:15 Acetaminophen 650 mg Q6HPRN PRN PO 03/07/24 04:15 03/07/24 23:23 650 MG Acetaminophen/ Hydrocodone Bitart 1 tab Q6HPRN PRN PO 03/07/24 04:15 03/10/24 01:52 1 TAB Ondansetron HCl 4 mg Q6HPRN PRN IV 03/07/24 04:15 03/08/24 16:07 4 MG Diagnostic Test (Pha) 1 strip Q4HR 03/07/24 06:00 03/10/24 05:52 1 STRIP Enteral Nutritional Formula 240 ml TIDWM PO 03/07/24 18:00 03/09/24 18:04 240 ML Tamsulosin HCl 0.4 mg QPM PO 03/08/24 18:00 03/09/24 18:04 0.4 MG Finasteride 5 mg DAILY PO 03/09/24 10:00 03/09/24 10:21 5 MG Metformin HCl 500 mg BIDWM PO 03/09/24 18:00 03/09/24 18:04 500 MG Bethanechol Chloride 25 mg Q8HR PO 03/09/24 22:00 03/10/24 05:41 25 MG objective General Appeara: Cachetic, Thin Head Exam: Normal inspection Neck Exam: Normal inspection, Non-tender, Normal alignment Eye Exam: bilateral eye Normal inspection, bilateral eye PERRL, bilateral eye EOMI Ear Exam: bilateral ear Auricle normal Nasal Exam: Normal inspection Mouth: Normal Inspection Pulmonary/Respiratory: Normal inspection, Normal breath sounds, Chest non- tender, Lungs clear Cardiovascular/Chest: Normal inspection, Regular rate, Normal Rhythm Abdominal Exam: Normal bowel sounds, Soft Rectal Exam: Deferred Back Exam: Other (erythema ) Knees: right knee other (wound) Foot: right foot other (wound) 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 Patient found to have 1. Sepsis 2. UTI 3. Obstructive Uropathy: BPH 4. Hypoglycemia 5. Hyperkalemia 6. Thrombocytosis 7. Multiple wounds Recommendations Got IV Vancomycin and ceftriaxone Ceftriaxone stopped 03/10 Switched from ceftriaxone to cefepime 03/10 due to morganella morgannie culture senstivity reports IV fluids D 10% @ 40 ml/hr also on Bicarb serial lactic levels wbc trended down plts slowly tapering s/p Subramanian catheter ( difficult); Urology consult may need terminal operations supervisor subramanian Follow up with Blood culture results from [facility] Total Critical time spent 35 min during the encounter. reviewed records from [facility]. discussed plan with patient and RN Thank you for consult Dietary Evaluation Review Comments: Consider a 2 gNa CCHO-60 diet and offer Jim BID for wound-healing. Expected Outcomes/Goals: gradual weight gain. CORRINE BOX MD Mar 10, 2024 09:46
[2024-03-10] MEDS ORDERED: BACDST PO (13:56)
[2024-03-10] MEDS ORDERED: FINA5TAB4 PO (13:56)
[2024-03-10] MEDS ORDERED: BETH50TA2 PO (13:56)
[2024-03-10] MEDS ORDERED: INSU1INJ19 SC (13:56)
--- NOTE | 2024-03-10 13:59 | DVHDS2 ---
Discharge Summary Date of Admission Mar 06, 2024 at 20:27 Date of Discharge: Mar 10, 2024 Labs/Diagnostic Data: Laboratory Results Test 03/10/24 10:11 03/09/24 05:14 03/07/24 19:20 03/07/24 18:56 POC Glucose 205 mg/dl (70-106) White Blood Count 5.5 10^3/uL (4.4-10.8) Red Blood Count 3.47 10^6/uL (4.5-5.90) Hemoglobin 10.3 g/dL (13.5-17.5) Hematocrit 30.2 % (41.0-53.0) Mean Corpuscular Volume 87.1 fL (80.0-100.0) Mean Corpuscular Hemoglobin 29.6 pg (28.0-32.0) Mean Corpuscular Hemoglobin Concent 34.0 g/dL (32.0-36.0) Red Cell Distribution Width 19.0 % (11.8-14.3) Platelet Count 864 10^3/uL (140-450) Mean Platelet Volume 6.1 fL (6.9-10.8) Neutrophils (%) (Auto) 85.0 % (37.0-80.0) Lymphocytes (%) (Auto) 11.4 % (10.0-50.0) Monocytes (%) (Auto) 3.1 % (0.0-12.0) Eosinophils (%) (Auto) 0.2 % (0.0-7.0) Basophils (%) (Auto) 0.3 % (0.0-2.0) Neutrophils # (Auto) 4.6 10 ^3/uL (1.6-8.6) Lymphocytes # (Auto) 0.6 10 ^3/uL (0.4-5.4) Monocytes # (Auto) 0.2 10 ^3/uL (0-1.3) Eosinophils # (Auto) 0 10 ^3/uL (0-0.8) Basophils # (Auto) 0 10 ^3/uL (0-0.2) Nucleated Red Blood Cells 0.1 % Sodium Level 130 mmol/L (136-145) Potassium Level 4.3 mmol/L (3.5-5.1) Chloride Level 99 mmol/L (98-107) Carbon Dioxide Level 22 mmol/L (20-31) Anion Gap 9 (5-15) Blood Urea Nitrogen 13 mg/dL (9-23) Creatinine 0.83 mg/dL (0.700-1.30) Glomerular Filtration Rate Calc 98 mL/min (>90) BUN/Creatinine Ratio 15.7 (10.0-20.0) Serum Glucose 215 mg/dL (74-106) Calcium Level 9.6 mg/dL (8.7-10.4) Urine Osmolality 359 mOsm/kg Urine Creatinine 18.28 mg/dL (30.0-125.0) Urine Protein/Creatinine Ratio 24.62 Urine Sodium 86 mmol/L (40-220) Urine Total Protein 450.1 mg/dL (1-14) Lactic Acid Level 2.1 mmol/L (0.4-2.0) Test 03/07/24 11:05 03/07/24 04:45 03/07/24 02:49 03/07/24 02:00 Vitamin D 25-Hydroxy 47.5 ng/mL (30.0-100) Hepatitis B Surface Antigen Negative (Negative) Hepatitis C Antibody Negative (Negative) Hemoglobin A1c 7.5 % A1C (<5.7) Urine Color Light-brown (Yellow) Urine Clarity Ex.turbid (Clear) Urine pH 6.0 (5.0-9.0) Urine Specific Pierson 1.010 (1.001-1.035) Urine Protein 1+ (Negative) Urine Ketones Negative (Negative) Urine Blood 3+ /uL (Negative) Urine Nitrite Negative (Negative) Urine Bilirubin Negative (Negative) Urine Urobilinogen Normal mg/dL (Negative) Urine Leukocyte Esterase 3+ /uL (Negative) Urine RBC 162 /hpf (0 - 3) Urine WBC 4344 /hpf (0 - 3) Urine WBC Clumps Present /hpf (None Seen) Urine Squamous Epithelial Cells None seen /hpf (<5) Urine Bacteria Many /hpf (None Seen) Urine Mucus Few (None Seen) Urine Glucose 4+ mg/dL (Normal) Uric Acid 6.9 mg/dL (3.7-9.2) Phosphorus Level 3.4 mg/dL (2.4-5.1) Magnesium Level 1.6 mg/dL (1.6-2.6) B-Type Natriuretic Peptide 44.22 pg/mL (0-100) Parathyroid Hormone (Intact) 19.0 pg/mL (18.4-80.1) Test 03/06/24 22:15 03/06/24 21:55 Ammonia 14 umol/L (11-32) Platelet Estimate Markedly increased Large Platelets Few Other Laboratory Tests 03/09/24 05:14 Final Diagnosis/Problems List hypoglycemia, uti Discharge Disposition: Home with Health Services Discharge Instruct/Medications Diet: Consistent carbohydrate, Cardiac 2g Na,low cholest Activity: No Restrictions, As Tolerated Follow Up/Referral: PCP [address] Miguel Mays 3-4 weeks for Urinary retention/UTI problems Medications: as prescribed and home meds per discharge list Discharge Statement: "Patient was advised to return to the ER or call 911 if any headaches, dizziness, shortness of breath, chest pain, abdominal pain, bleeding, fevers, or worsening of medical condition. Patient was counseled about treatment plan, medications, possible side effects, patientverbalized understanding. All questions were answered to the best of my ability. This discharge took greater then 30 minutes in planning, reviewing documentation, counseling the patient, and discussing with other team members." ASSESSMENT ASSESSMENT Assessment hypoglycemia, uti JOHN DRISCOLL MD Mar 10, 2024 13:59
[2024-03-10] MEDS: CEFEPIME 2GM/50ML NS 50 ML IV SCH (14:00)
== END 2024-03-10 19:45 | disposition home health service (06) | DRG 682 ==
LOC: TELE-WESTW 20:27 → DOU IN ICU 23:32 → TELE-E-ADS 03-08 16:36
PROVIDERS: ADMIT Hospitalist; ATTEND Hospitalist
DX: N17.0 Acute kidney failure with tubular necrosis (principal); G93.41 Metabolic encephalopathy; N13.8 Other obstructive and reflux uropathy; N39.0 Urinary tract infection, site not specified; Z68.1 Body mass index [BMI] 19.9 or less, adult; E11.649 Type 2 diabetes mellitus with hypoglycemia without coma; E87.5 Hyperkalemia; D63.1 Anemia in chronic kidney disease; D75.838 Other thrombocytosis; N40.1 Benign prostatic hyperplasia with lower urinary tract symptoms; E11.22 Type 2 diabetes mellitus with diabetic chronic kidney disease; N18.9 Chronic kidney disease, unspecified; M81.0 Age-related osteoporosis without current pathological fracture; M16.0 Bilateral primary osteoarthritis of hip; G89.4 Chronic pain syndrome; E86.0 Dehydration; R62.7 Adult failure to thrive; S31.000A Unspecified open wound of lower back and pelvis without penetration into retroperitoneum, initial encounter; S81.001A Unspecified open wound, right knee, initial encounter; S91.301A Unspecified open wound, right foot, initial encounter; Z79.84 Long term (current) use of oral hypoglycemic drugs; Z82.5 Family history of asthma and other chronic lower respiratory diseases; Z82.49 Family history of ischemic heart disease and other diseases of the circulatory system; Z80.3 Family history of malignant neoplasm of breast; Z80.1 Family history of malignant neoplasm of trachea, bronchus and lung; Z80.0 Family history of malignant neoplasm of digestive organs; X58.XXXA Exposure to other specified factors, initial encounter; Y93.89 Activity, other specified; Y92.89 Other specified places as the place of occurrence of the external cause; Y99.8 Other external cause status
CPT/HCPCS: 36415; 70450; 70551; 72192; 73700; 76775; 80048; 81001; 82140; 82306; 82565; 82570; 82962; 83036; 83605; 83735; 83880; 83935; 83970; 84100; 84156; 84300; 84550; 85025; 86803; 87081; 87086; 87088; 87186; 87340; 94640; G0378; J2405